=== PATIENT | female | born 1965 | race Caucasian/White ===

== ENCOUNTER → 2017-05-10 11:52 | Outpatient (CLI) | payer OTHER, SELFPAY ==
[2017-05-10 12:27] LABS: Absolute Lymphocyte Count 1.61 X10^3/ul (0.83-4.51); Absolute Neutrophil Count 2.7 X10^3/uL (2.0-7.7); Basophil# 0.02 X10^3/uL; Basophil% 0.4 % (0-1); Eosinophil# 0.08 X10^3/uL; Eosinophils% 1.7 % (0-5); Hematocrit 43.9 % (37-47); Hemoglobin 14.7 g/dl (12.0-15.0); Lymphocyte # 1.61 X10^3/ul (4.0); Lymphocyte % 33.3 % (19-41); Mean Corp Hgb Conc 33.5 g/gl (32-36); Mean Corpuscular Hgb 29.4 pg (27.0-32.0); Mean Corpuscular Volume 87.8 fL (81-99); Mean Platelet Vol. 10.4 fl (6.2-12.0); Monocyte# 0.41 X10^3/uL; Monocyte% 8.5 % (0-10); Neutrophil # 2.71 X10^3/uL (2.7-7.7); Neutrophil % 55.9 % (47-70); Platelet Count 212 K/mm3 (150-450); RBC Distribution Width CV 13.2 % (11.6-14.6); RBC Distribution Width SD 42.3 fl (35.1-43.9); White Blood Count 4.8 K/mm3 (4.4-11.0)
[2017-05-10 12:28] LABS: POSITIVE COUNT NO; POSITIVE DIFFERENTIAL NO; POSITIVE MORPHOLOGY NO
[2017-05-10 13:01] LABS: ALB/GLOB Ratio 0.8 RATIO (0.9-2.4); AST(SGOT) 23 U/L (15-37); Alanine Aminotransfer ALT/SGPT 41 U/L (13-56); Albumin, Serum 3.4 g/dL (3.2-5.0); Alkaline Phosphatase 139 U/L (45-117); Anion Gap 6 (5-15); BUN 9 mg/dL (7-18); BUN/Creat Ratio 14.2 RATIO (10-20); Calcium,Total 8.8 mg/dL (8.5-10.1); Chloride 106 mmol/L (98-107); Cholesterol 166 mg/dL (200); Creatinine, Serum 0.64 mg/dL (0.55-1.02); EST Glomerular Filtration Rate 104 mL/min (>60); Est Glom Filt Rate - Afr Amer 126 mL/min (>60); Free T3 3.3 pg/mL (2.18-3.98); Glucose 90 mg/dL (74-106); High Density Lipoprotein 67 mg/dL; Potassium 4.2 mmol/L (3.5-5.1); Protein, Total 7.4 g/dL (6.4-8.2); Sodium Level 143 mmol/L (136-145); T4 Free Direct 1.52 ng/dL (0.76-1.46); Thyroid Stim Hormone (TSH) < 0.01 uIU/mL (0.358-3.74); Triglycerides 128 mg/dL; Very Low Density Lipoprotein 26 mg/dL (5-40)
[2017-05-11 16:09] LABS: Thyroid Peroxidase AB 19 IU/mL (0-34)
[2017-05-12 09:25] LABS: Thyroglobulin Antibody < 1.0 IU/mL (0.0-0.9)
== END ==
PROVIDERS: Family Provider Family Medicine; PCP Family Medicine; Visit Provider Family Medicine
DX: E03.9 Hypothyroidism, unspecified (principal); I10 Essential (primary) hypertension; R07.89 Other chest pain
CPT/HCPCS: 36415; 80053; 80061; 84439; 84443; 84481; 85025; 86376; 86800

== ENCOUNTER → 2018-12-25 14:15 | Outpatient (CLI) | payer OTHER, SELFPAY ==
[2018-12-25 12:25] VITALS: BMI 40.7
== END ==
PROVIDERS: Family Provider Family Medicine; PCP Family Medicine; Referring Provider Physician Assistant Surgical; Visit Provider Physician Assistant Surgical
DX: J02.9 Acute pharyngitis, unspecified (principal)
CPT/HCPCS: 87070

== ENCOUNTER → 2019-02-06 12:31 | Outpatient (CLI) | payer OTHER, SELFPAY ==
[2018-12-25 12:25] VITALS: BMI 40.7
[2019-02-06 13:40] LABS: Absolute Lymphocyte Count 1.87 X10^3/uL (0.83-4.51); Absolute Neutrophil Count 2.9 X10^3/uL (2.0-7.7); Basophil# 0.04 X10^3/uL; Basophil% 0.7 % (0-1); Eosinophil# 0.07 X10^3/uL; Eosinophils% 1.3 % (0-5); Hematocrit 42.9 % (37-47); Lymphocyte # 1.87 X10^3/ul (4.0); Lymphocyte % 34.1 % (19-41); Mean Corp Hgb Conc 32.6 g/dL (32-36); Mean Corpuscular Hgb 29.5 pg (27.0-32.0); Mean Corpuscular Volume 90.3 fL (81-99); Mean Platelet Vol. 10.7 fl (6.2-12.0); Monocyte# 0.59 X10^3/uL; Monocyte% 10.7 % (0-10); NRBC Flagged by Analyzer 0 % (0-5); Neutrophil % 52.8 % (47-70); Platelet Count 183 K/mm3 (150-450); RBC Distribution Width CV 11.9 % (11.6-14.6); RBC Distribution Width SD 39.8 fl (35.1-43.9); Red Blood Count 4.75 M/mm3 (4.2-5.4); White Blood Count 5.5 K/mm3 (4.4-11.0)
[2019-02-06 14:06] LABS: Anion Gap 6 (5-15); BUN 11 mg/dL (7-18); BUN/Creat Ratio 12.9 RATIO (10-20); Calcium,Total 9.3 mg/dL (8.5-10.1); Chloride 106 mmol/L (98-107); Cholesterol 174 mg/dL (200); Creatinine, Serum 0.85 mg/dL (0.55-1.02); EST Glomerular Filtration Rate 74 mL/min (>60); Est Glom Filt Rate - Afr Amer 89 mL/min (>60); Glucose 87 mg/dL (74-106); High Density Lipoprotein 69 mg/dL; Potassium 4.2 mmol/L (3.5-5.1); Sodium Level 140 mmol/L (136-145); Thyroid Stim Hormone (TSH) 0.02 uIU/mL (0.358-3.74); Triglycerides 104 mg/dL; Very Low Density Lipoprotein 21 mg/dL (5-40)
[2019-02-06 14:48] LABS: Vitamin D,25 Hydroxy 45.6 ng/mL (29.95-100.01)
== END ==
PROVIDERS: Family Provider Family Medicine; PCP Family Medicine
DX: F41.1 Generalized anxiety disorder (principal); F33.2 Major depressive disorder, recurrent severe without psychotic features
CPT/HCPCS: 36415; 80048; 80061; 82306; 84443; 85025

== ENCOUNTER → 2019-04-02 12:34 | Outpatient (CLI) | payer OTHER, SELFPAY ==
[2018-12-25 12:25] VITALS: BMI 40.7
[2019-04-02 14:02] LABS: Erythrocyte Sedimentation Rate 18 mm/hr (0-30)
[2019-04-02 14:19] LABS: Rheumatoid Factor < 10.0 IU/mL (<15)
== END ==
PROVIDERS: PCP Family Medicine; Referring Provider Surgery; Visit Provider Surgery
DX: M79.89 Other specified soft tissue disorders (principal); M25.50 Pain in unspecified joint; R53.83 Other fatigue; F98.8 Other specified behavioral and emotional disorders with onset usually occurring in childhood and adolescence; L98.9 Disorder of the skin and subcutaneous tissue, unspecified
CPT/HCPCS: 36415; 85652; 86141; 86431

== ENCOUNTER → 2020-01-28 16:10 | Outpatient (CLI) | payer OTHER, SELFPAY | PROVIDERS: PCP Family Medicine; Referring Provider Physician Assistant Surgical; Visit Provider Physician Assistant Surgical | DX: R68.89 Other general symptoms and signs (principal) | CPT/HCPCS: 87635; U0003 ==

== ENCOUNTER → 2020-06-17 12:06 | Outpatient (CLI) | payer OTHER, SELFPAY ==
[2020-04-27 10:27] VITALS: BMI 41.6
[2020-06-17 15:33] LABS: Absolute Lymphocyte Count 1.73 X10^3/uL (0.83-4.51); Basophil# 0.04 X10^3/uL; Basophil% 0.8 % (0-1); Eosinophil# 0.07 X10^3/uL; Eosinophils% 1.3 % (0-5); Hematocrit 44.6 % (37-47); Hemoglobin 14.1 g/dL (12.0-15.0); Lymphocyte # 1.73 X10^3/ul (4.0); Lymphocyte % 33.2 % (19-41); Mean Corp Hgb Conc 31.6 g/dL (32-36); Mean Corpuscular Hgb 28.8 pg (27.0-32.0); Mean Corpuscular Volume 91.2 fL (81-99); Mean Platelet Vol. 11.4 fl (6.2-12.0); Monocyte# 0.41 X10^3/uL; Monocyte% 7.9 % (0-10); NRBC Flagged by Analyzer 0 % (0-5); Neutrophil # 2.95 X10^3/uL (2.7-7.7); Neutrophil % 56.6 % (47-70); Platelet Count 199 K/mm3 (150-450); RBC Distribution Width CV 12.5 % (11.6-14.6); RBC Distribution Width SD 41.1 fl (35.1-43.9); Red Blood Count 4.89 M/mm3 (4.2-5.4); White Blood Count 5.2 K/mm3 (4.4-11.0)
[2020-06-17 16:01] LABS: Thyroid Stim Hormone (TSH) 0.04 uIU/mL (0.358-3.74)
--- NOTE | 2020-06-17 18:24 | US_ITS ---
STUDY: ULTRASOUND OF THE FEMALE PELVIS - COMPLETE REASON FOR EXAM: Female, 54 years old. RLQ PAIN LMP: Menopause TECHNIQUE: Transabdominal and Transvaginal TECHNICAL QUALITY: Adequate. COMPARISON: 11/21/2014 FINDINGS: The uterus is anteverted and is in a midline position. The uterus measures 7.3 x 5.6 x 3.2 cm. Normal uterine cervix. The endometrium measures 8 mm in thickness, and is hyperechoic. There is no demonstrated endometrial mass. There is no demonstrated myometrial mass. I.U.D. - The patient does not have an I.U.D. The right ovary is visualized. The right ovary measures 2.2 x 1.5 x 1.3 cm. There is no right ovarian cyst or ovarian mass. There is no visualized right adnexal mass or complex lesion. There is normal arterial and normal venous vascularity. The left ovary is non-visualized.. There is no fluid in the cul-de-sac. The pre void volume of the bladder was ml. The post void volume of the bladder was ml. Polycystic ovary disease: No. US/Pelvic (Non ) IMPRESSION: Normal female pelvis. Electronically Signed: Ji Elias MD at 9:16 EDT Tel , Service support ,
== END ==
PROVIDERS: PCP Family Medicine; Referring Provider Family Medicine; Visit Provider Family Medicine
DX: R10.31 Right lower quadrant pain (principal); E03.9 Hypothyroidism, unspecified
CPT/HCPCS: 36415; 76856; 84443; 85025

== ENCOUNTER → 2020-08-25 14:04 | Outpatient (CLI) | payer OTHER, SELFPAY ==
[2020-04-27 10:27] VITALS: BMI 41.6
[2020-08-25 18:41] LABS: Thyroid Stim Hormone (TSH) 0.68 uIU/mL (0.358-3.74)
== END ==
PROVIDERS: PCP Family Medicine; Referring Provider Family Medicine; Visit Provider Family Medicine
DX: E03.9 Hypothyroidism, unspecified (principal)
CPT/HCPCS: 36415; 84443

== ENCOUNTER → 2020-11-27 07:58 | Outpatient (CLI) | payer OTHER, SELFPAY ==
--- NOTE | 2020-11-27 08:00 | BRBX_PTH ---
PATIENT: AISSATOU DOUGHERTY LOC: [facility] U#:[id number] AGE/SX: 59/F ROOM: RE11/27/[address]: Dr. Shellie Roman MD : 1965 BED: DIS: SPEC #: [id number] RECD: 11/27/20 10:13 STATUS: KAREN REAugusto #: [id number] BEENA: 11/27/20 08:[address]: Shellie Roman DEPT: SURGICAL PATHOLOGY RECD BY: Venkata Henriquez ENTERED: 11/27/20 10:27 SP TYPE: BREAST BX OTHR DR: Dr. Johanna Valdes MD Tissues: A - Left breast, NOS B - Right breast, NOS C - Right breast, NOS Procedures: Surgery Specimen Level IV HEADER OPERATION: Bilateral stereotactic breast biopsy PRE-OP DIAGNOSIS: Left breast density; right breast density and calcifications TISSUE SUBMITTED: A ? Left breast density lower inner middle depth, B ? Right breast architectural distortion anterior depth medial, C ? Right breast grouped calcifications upper outer posterior depth ISCHEMIC TIME: 1 minute FIXATION TIME: 7.5 hours MICROSCOPIC DIAGNOSIS A. Left breast density, lower inner middle depth, stereotactic core biopsy: Focal intraductal hyperplasia without atypia. Fragments of benign breast tissue with extensive dense fibrosis, suggestive of benign pseudoangiomatous stromal hyperplasia. Negative for malignancy. B. Right breast, architectural distortion anterior depth medial, stereotactic core biopsy: Fragments of benign breast tissue with extensive dense fibrosis. Focal microcalcification. Negative for atypia or malignancy. C. Right breast grouped calcifications upper outer posterior depth, stereotactic core biopsy: Hyalinized fibroadenoma with focal calcification. Fragments of benign breast tissue with focal microcalcifications. Negative for atypia or malignancy. SJ:luz elena 11/28/2020 COMMENT Correlation with clinical, radiologic and appropriate follow up are necessary. MICROSCOPIC DESCRIPTION Slides are reviewed. GROSS DESCRIPTION A - Received in fixative is one container labeled with the patient's name and designated left breast #1. The specimen consists of multiple elongated fragments of mccrary-yellow fibroadipose tissue that in aggregate measure 5 x 3 x 0.3 cm. The entire specimen is submitted in two cassettes. B - Received in fixative is one container labeled with the patient's name and designated medial density right breast #2. The specimen consists of multiple elongated fragments of mccrary-yellow fibroadipose tissue that in aggregate measure 7.5 x 3 x 0.3 cm. The entire specimen is submitted in three cassettes. C - Received in fixative is one container labeled with the patient's name and designated right breast calcification #3. The specimen consists of multiple elongated fragments of mccrary-yellow fibroadipose tissue that in aggregate measure 2 x 0.8 x 0.3 cm. The entire specimen is submitted in one cassette. / SJ:luz elena 11/27/20 TC:1 CPT: 40359 x3
--- NOTE | 2020-11-27 10:54 | OP.PCM_ITS ---
Report of Operation Date of Procedure: 11/27/20 Pre-Operative Diagnosis: abnormal lesions seen on right and left breast mammogr ams Post-Operative Diagnosis: same Surgery/Procedure Performed:: right (x2) and left stereotactic breast biopsies Description of Surgical Findings:: There are two abnormal lesions called by the radiologist on right breast mammograms and one abnormal lesion on left breast mammograms Surgeon: Shellie Roman Type of Anesthesia: Local (1% xylocaine) Specimen's removed: left breast tissue, right breast tissue x 2 Estimated Blood Loss (mL): < 5 ml Description of Procedure: After informed consent was given, the patient was brought into the Breast Biopsy suite. Appropriate time out protocol was followed. The patient was placed in the prone position on the stereotactic biopsy table. The left breast lesion was approached first. The patient?s left breast was then placed in the opening at the head of the biopsy table. A pattern marking supervisor compression mammogram was then obtained in the medial lateral view. The suspicious radiological lesion was thus identified. Stereo pictures of the lesion were then taken for XYZ coordinates. The Mammotome biopsy stylus was then positioned where it would be entering into the patient?s breast. The skin at this site was then cleansed with a surgical skin preparation. The skin and subcutaneous tissues at this site were then infiltrated with 1% xylocaine. A small skin incision was made with an 11 blade scalpel. The biopsy stylus was then positioned into the patient?s breast at the proper coordinates of depth. Using the Mammotome vacuum-assist device, several core samples of breast tissue were obtained. A hemostatic marker clip was then placed into the biopsy cavity and a pattern marking supervisor film revealed that it was properly deployed. The patient was then placed in the supine position and pressure was applied to the breast until no active bleeding was noted. Steristrips were applied to reapproximate the skin. The right breast mammographic lesions were then approached next. The first lesion approached was the asymmetric lesion seen only in CC view of the patient's original mammograms. The patient?s right breast was then placed in the opening at the head of the biopsy table. A pattern marking supervisor compression mammogram was then obtained in the CC view. The suspicious radiological lesion was thus identified. Stereo pictures of the lesion were then taken for XYZ coordinates. The Mammotome biopsy stylus was then positioned where it would be entering into the patient?s breast. The skin at this site was then cleansed with a surgical skin preparation. The skin and subcutaneous tissues at this site were then infiltrated with 1% xylocaine. A small skin incision was made with an 11 blade scalpel. The biopsy stylus was then positioned into the patient?s breast at the proper coordinates of depth. Using the Mammotome vacuum-assist device, several core samples of breast tissue were obtained. A hemostatic marker clip was then placed into the biopsy cavity and a pattern marking supervisor film revealed that it was properly deployed. Pressure was applied to the area. The second abnormal right breast mammographic lesion was then approached, which were the abnormal calcifications. A pattern marking supervisor compression mammogram was then obtained in the lateral view. The suspicious radiological lesion was thus identified. Stereo pictures of the lesion were then taken for XYZ coordinates. The Mammotome biopsy stylus was then positioned where it would be entering into the patient?s breast. The skin at this site was then cleansed with a surgical skin preparation. The skin and subcutaneous tissues at this site were then infiltrated with 1% xylocaine. A small skin incision was made with an 11 blade scalpel. The biopsy stylus was then positioned into the patient?s breast at the proper coordinates of depth. Patient tolerated pre- and Post-fire films. However, upon using the Mammotome vacuum-assist device to obtain breast tissue samples, the patient experienced pain and this caused patient to move from her position. The mammotome was removed from the patient's breast and pressure applied to the area. Only one core specimen was obtained. A specimen mammogram was therefore obtained. Since it revealed calcifications in the specimen, I re viewed this personally and concluded that the tissue sampling was adequate. The patient was then placed in the supine position and pressure was applied to the breast until no active bleeding was noted. Steristrips were applied to reapproximate the skin at all right breast biopsy sites. Mammograms were obtained for postprocedure view of the clips, s/p biopsies. The patient was discharged from the Breast Biopsy suite in good condition. Complications none noted
== END ==
PROVIDERS: PCP Family Medicine; Referring Provider Surgery; Visit Provider Surgery
DX: R92.1 Mammographic calcification found on diagnostic imaging of breast (principal); R92.2 Inconclusive mammogram
CPT/HCPCS: 19081; 19082; 88305; J7050; A4648

== ENCOUNTER → 2020-12-08 12:46 | Outpatient (CLI) | payer OTHER, SELFPAY ==
--- NOTE | 2020-12-08 13:07 | CT_ITS ---
CT Lower Extremity W/O Contrast Injection INDICATION:55 years old Female presenting with UNILATERAL PRIMARY OSTEOARTHRITIS,R KNEE. TECHNIQUE: Sequential axial 2.5 mm collimated images are obtained through the right hip and ankle. 0.625 mm images were obtained through the right knee. No intravenous contrast was administered. Images were reformatted in sagittal and coronal planes and forwarded for preoperative planning. COMPARISON: 08/03/2014. FINDINGS: Contiguous axial images of the right lower extremity was obtained in different collimations, images demonstrate degenerative changes, no evidence of cortical irregularities or lucencies to suggest fractures, no evidence of lytic or sclerotic bone lesions are seen. No evidence of right hip dislocation, mild narrowing of the right hip joint space is seen. Small right inguinal hernia visualized Moderate to severe narrowing of the medial knee joint space and the patellofemoral joint space, moderate narrowing of the lateral knee joint space. Prominent osteophyte formation is seen. Small suprapatellar fluid is seen.. The ankle mortise is well-maintained, the talar dome is unremarkable, degenerative changes visualized with no evidence of cortical irregularity or lucency to suggest a fracture. No evidence of dislocation is seen. The intramuscular fat planes and muscles are unremarkable. No evidence of subcutaneous soft tissue stranding is visualized except mild stranding along the posterior inferior aspect of the calcaneus bone. IMPRESSION: Extensive degenerative changes visualized in the right knee, no acute osseous abnormality is seen. Electronically Signed: Kermit Lentz MD at 10:35 EDT Tel , Service support , CT/Extremity Lower without Contra
== END ==
PROVIDERS: PCP Family Medicine; Referring Provider Orthopaedic Surgery; Visit Provider Orthopaedic Surgery
DX: M17.11 Unilateral primary osteoarthritis, right knee (principal)
CPT/HCPCS: 73700

== ENCOUNTER 2021-01-05 09:28 | Day surgery (SDC) | payer OTHER, SELFPAY ==
--- NOTE | 2020-11-28 14:17 | HP.PCM_ITS ---
History and Physical History and Physical [facility] Patient Name: Nikita Almodovar : 1965 From: RENETTA STEWART PA-C DATE OF SURGERY: 12/22/2020 SCHEDULED PROCEDURE: Right total knee arthroplasty HISTORY OF PRESENT ILLNESS: Preoperative history and physical exam was performed on November 26, 2020. This is a 55-year-old female who has had ongoing pain since September 2020 after going upstairs and fell. Since then she had increased right knee pain. Her pain has been constant, aching, sharp, stabbing, sore. Patient has difficulty with activities of daily living including housework, shopping, walking, and putting weight on the right lower extremity for extended periods of time. She has fallen, tripped/stumble due to the knee pain. She feels unsafe going up and down steps. Patient has had multiple falls since the injury. 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 Patient has tried rest, ice with no relief in symptoms. She has tried compression, physical therapy, and home exercises without relief in symptoms. Patient has been on Nabumetone, ibuprofen, Tylenol with no relief in symptoms. She denies previous surgery on the right knee. She has tried bracing without relief in symptoms. She has been using crutches. After failing conservative measures and discussing treatment options, the patient does wish to proceed with a right total knee arthroplasty. Patient does have medical history pertinent for depression, thyroid disease, hypertension, anxiety. She also reports that she had a recent core biopsy from her breast and is currently being evaluated. She denies any fevers, chills, recent infections. She does have aspirin allergy and which her allergy is anaphylaxis. Due to this allergy we will use Xarelto post-operatively for DVT prophylaxis. She has tolerated other nonsteroidal anti-inflammatories. REVIEW OF SYSTEMS: ROS: Const: Denies change in appetite, fever, hard of hearing, vision problems and weight change CV: Denies chest pain, heart murmur, irregular heartbeat and peripheral vascular disease. Resp: Reports asthma, but denies cough, pneumonia, sleep apnea, SOB, tuberculosis and wheezing. GI: Reports heartburn, but denies constipation, diarrhea, difficulty swallowing, nausea, bloody stools and vomiting. : Genital: reports irregular menstrual periods. Urinary: denies incontinence. Musculo: Reports leg swelling, but denies limp, trouble walking and weakness. Skin: Reports tattoo, but denies Raynaud's and history of shingles. Neuro: Denies ambulatory dysfunction, dizziness, numbness/tingling and tremor. Psych: Reports depression, but denies anxiety, insomnia, mental illness and stress. Augustine/Lymph: Reports anemia and bleeding/bruising tendency, but denies past transfusion. Reviewed, no changes. PAST MEDICAL HISTORY: Advance Care Plan: No Advance Directives Effective Date: 12/27/2018 PMH: Medical Problems: Arthritis, Thyroid Disease, Depression, High Blood Pressure, Anxiety, Plantar Fascitis Accidents: Fracture - (2014) LT KNEE Other - (09/05/2020) FELL-LT KNEE Surgical Hx: Gallbladder - (2001) Hernia Repair - (2001) Tubal Ligation - (1995) thyroid ablation - (2006) d&c - (2015) Anesthesia Complications: None Assistive Devices: Glasses, Contacts Reviewed and updated. 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 Personal Habits: Cigarette Use: Never Smoked Cigarettes.Alcohol: Weekly use.Drug Use: Denies Use.Enjoy Exercising: Exercises 1-3 x/month. Reviewed, no changes. VITALS: Ht: 67 Wt: 268lb Wt k.565 BMI: 42.0 BP: 153/88 Pulse: 66 Resp: 14 T: 96.6 T: 35.9C Pain Level: 2 ALLERGIES: Contrast Dye - anaphylaxis Seasonal - sneezing Aspirin - anaphylaxis CT Contrast Aleve MEDICATIONS: Nabumetone 500 mg 1 by mouth twice a day with food, Levothyroxine Sodium 200 mg 1 daily, M.V.I. Adult 1 daily, Atenolol 25 mg 1/2 by mouth every day, Prozac 20 mg 1 by mouth every day, Tylenol Extra Strength 500 mg 2 by mouth every 8 hours PRE-OP EXAM: General appearance:NORMAL Other: Eyes: Conjunctivae and lids: NORMAL Pupils: ERR Ears, Nose, Mouth, and Throat: NORMAL Other: Inspection of lips, teeth and gums: NORMAL Other: Neck: Examination of neck: no masses noted. Respiratory: Assessment of respiratory effort: NORMAL Other: Auscultation of lungs: clear to auscultation no wheezes, rhonchi or rales. Cardiovascular: Auscultation of heart: regular rate and rhythm, no murmurs, gallops or rubs. Exam of carotid arteries: NORMAL Other: PHYSICAL EXAMINATION: On exam of the right knee is cool to touch without erythema or signs of infection. She does have a fusion. There is tenderness to palpation along the medial joint line. She has varus deformity which is correctable on exam. Range of motion: Lacks 40 full extension to 90 flexion with increased pain. Positive Zo's examination, negative varus/valgus stress test, negative anterior drawer exam. Sensation intact to light touch. She does walk with an antalgic gait. 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 Previous x-rays show medial joint space narrowing, subchondral sclerosis, osteophyte formation with varus deformity consistent with moderate osteoarthritis. IMPRESSION: 1. Right knee osteoarthritis 2. Thyroid disease 3. Hypertension 4. Depression 5. Anxiety 6. Plantar fasciitis 7. Recent core biopsy bilateral breast PLAN: Dr. Pollo Ervin did discuss and review with the patient all treatment options including surgical versus nonsurgical options. Patient does wish to proceed with the above-stated procedure. Potential risks, benefits, and complications of the procedure were discussed in detail including but not limited to , infection, nerve and blood vessel damage, persistent pain, numbness, tingling, paresthesias, blood clot, pulmonary embolism, and requirement for possible further surgery. The patient expressed full understanding and has no further questions for the doctor. Patient does agree to proceed with the above-stated procedure and has signed the surgery consent form. We discussed the current risks associated with COVID 19. This does include the risk of exposure while in the hospital. Patient was reassured local hospitals have low infection rates and are taking all necessary precautions to avoid exposure to patients. In addition, we discussed strategies that can be used to help limit exposure including those that limit the patient's time in the hospital. Also using strategies to limit the patient's need for continued inpatient services after being discharged from the hospital. Patient was notified that we will need to comply with any screening or testing the hospital wishes to perform or that surgery may be delayed for any positive results. This dictation was created using voice recognition software. Phonetic and/or grammatical errors may exist. ___ I have re-examined the patient. There are no clinical changes since date of exam. ___ See progress notes for changes. ___ Dictated on admission Date: Time: Signature:
--- NOTE | 2020-12-08 12:59 | EKG12_ITS ---
Test Reason : PRE OP Blood Pressure : / mmHG Vent. Rate : 052 BPM Atrial Rate : 052 BPM P-R Int : 150 ms QRS Dur : 084 ms QT Int : 424 ms P-R-T Axes : 056 042 033 degrees QTc Int : 394 ms Sinus bradycardia with sinus arrhythmia Nonspecific T wave abnormality Abnormal ECG Confirmed by EDVIN MEDINA, NOE ([id number]), marketing editor LISA LAMBERT ([id number]) on 12/15/2020 12:35:36 PM Referred By: Pollo Ervin Confirmed By:KELSEA PARDO MD
[2020-12-08 14:01] LABS: Absolute Lymphocyte Count 1.96 X10^3/uL (0.83-4.51); Absolute Neutrophil Count 4.5 X10^3/uL (2.0-7.7); Basophil# 0.06 X10^3/uL; Basophil% 0.8 % (0-1); Eosinophil# 0.11 X10^3/uL; Eosinophils% 1.5 % (0-5); Hematocrit 45.9 % (37-47); Hemoglobin 14.5 g/dL (12.0-15.0); Lymphocyte # 1.96 X10^3/ul (0.83-4.51); Lymphocyte % 27.2 % (19-41); Mean Corp Hgb Conc 31.6 g/dL (32-36); Mean Corpuscular Hgb 29.5 pg (27.0-32.0); Mean Corpuscular Volume 93.5 fL (81-99); Mean Platelet Vol. 11.5 fl (6.2-12.0); Monocyte# 0.61 X10^3/uL; Monocyte% 8.5 % (0-10); NRBC Flagged by Analyzer 0 % (0-5); Neutrophil # 4.45 X10^3/uL (2.7-7.7); Neutrophil % 61.7 % (47-70); Platelet Count 235 K/mm3 (150-450); RBC Distribution Width CV 12.9 % (11.6-14.6); RBC Distribution Width SD 44.3 fl (35.1-43.9); Red Blood Count 4.91 M/mm3 (4.2-5.4); White Blood Count 7.2 K/mm3 (4.4-11.0)
[2020-12-08 14:21] LABS: Anion Gap 5 (5-15); BUN 10 mg/dL (7-18); BUN/Creat Ratio 12.3 RATIO (10-20); Calcium,Total 9.2 mg/dL (8.5-10.1); Chloride 107 mmol/L (98-107); Creatinine, Serum 0.82 mg/dL (0.55-1.02); EST Glomerular Filtration Rate 77 mL/min (>60); Est Glom Filt Rate - Afr Amer 93 mL/min (>60); Glucose 97 mg/dL (74-106); Potassium 3.8 mmol/L (3.5-5.1); Sodium Level 142 mmol/L (136-145)
[2020-12-08 14:31] LABS: Thyroid Stim Hormone (TSH) 0.19 uIU/mL (0.358-3.74)
[2021-01-05] VITALS (7 sets, daily range): BP systolic 110–147; BP diastolic 62–84; PULSE 43–62; RESP 16–18; TEMP 36.3–36.7; O2SAT 96–100; BMI 41.8
[2021-01-05 09:55] LABS: Bedside Glucose 100 mg/dL (70-110)
[2021-01-05] MEDS: Acetaminophen 500 MG Tablet 1000 MG PO (10:07)
[2021-01-05] MEDS: Gabapentin 600 MG Tablet PO (10:08)
[2021-01-05] MEDS: Lactated Ringers 1,000 ML 100 ML IV (10:15)
[2021-01-05] MEDS: dexAMETHasone 10 MG/ML Vial IV (11:18)
--- NOTE | 2021-01-05 11:30 | KNEE_PTH ---
PATIENT: AISSATOU DOUGHERTY LOC: [facility] [place] U#:[id number] AGE/SX: 55/F ROOM: RE01/05/[address]: Dr. Pollo Ervin DO : 1965 BED: DIS: 01/05/2021 SPEC #: [id number] RECD: 01/05/21 15:07 STATUS: KAREN REAugusto #: [id number] BEENA: 01/05/21 11:[address]: Pollo Ervin DEPT: SURGICAL PATHOLOGY RECD BY: Daniela Keenan ENTERED: 01/06/21 08:14 SP TYPE: TOTAL KNEE OTHR DR: Dr. Johanna Valdes MD Tissues: Knee, NOS Procedures: Decalcification bone/plaque Surgery Specimen Level IV HEADER OPERATION: ERAS, total knee replacement robotic arm assist PRE-OP DIAGNOSIS: Right knee osteoarthritis TISSUE SUBMITTED: Right knee bone MICROSCOPIC DIAGNOSIS Right knee bone, total knee replacement/resection: Pieces of bone with degenerative osteoarthritic changes. MAURICIO:luz elena 01/09/2021 MICROSCOPIC DESCRIPTION Slides are reviewed. GROSS DESCRIPTION Received is one container designated right knee bone. The specimen consists of multiple fragments of mccrary-yellow bone measuring in aggregate 10 x 8 x 3 cm. No soft tissue is identified. A number of bony fragments contain articular surfaces consistent with tibial plateau and femoral condyle and displaying prominent osteophyte formation, eburnation, and bone erosion. Dentofacial Orthopedics Dentist sections are submitted in two cassettes after decalcification. / MAURICIO:luz elena 01/06/21 TC:3 CPT: 69490, 56587
[2021-01-05] MEDS: Joint Pain Solution (NO KETOROLAC) 100 ML IV (12:10)
--- NOTE | 2021-01-05 12:39 | OP.PCM_ITS ---
Report of Operation Date of Procedure: 01/05/21 Pre-Operative Diagnosis: OA right knee Post-Operative Diagnosis: same Surgery/Procedure Performed:: Right TKR Description of Surgical Findings:: Report of Operation Date of Procedure: 01/05 21 Preoperative Diagnosis: [ right ] knee primary osteoarthritis Postoperative Diagnosis: [ right ] knee primary osteoarthritis Operation: Robotic Assisted Knee Total Arthroplasty, [ right ] knee Surgeon: Dr Pollo Ervin DO Apparel Fashion Designer: Danny Emmanuel PA-C Anesthesia: spinal Anesthesiologist: Leo Pearce M.D. Findings: Stable knee with good patella tracking Specimen(s): Bony cuts Complications: No intraoperative complications Estimated Blood Loss: 20 cc IV Fluids:1000 cc crystalloid Implants Used: 1. [place] Triathlon size 4 CR press-fit femur 2. [place] Triathlon size 3 tibia 3. 32 mm patella 4. 9 mm CS polyethylene Brief History Operative Indications: [ 55 y/o female) ] with history of [ right ] knee osteoarthrosis with radiographic findings with loss of joint space, osteophyte formation and subchondral sclerosis. Failed conservative measures as mentioned in the H&P. Discussion of total knee arthroplasty as well as risk and benefits were discussed with the patient including but not limited to blood loss, DVTs, PEs, neurovascular damage, general risk of anesthesia including loss of life, and stiffness or instability were also discussed with the patient. Patient de monstrated understanding and was able to sign informed consent. Procedure: On the date of procedure, patient's [right ] lower extremity was marked in the preoperative area. The patient was then taken back to the operating room where that patient was placed on the table in the supine position. All bony prominences were identified and well-padded. Anesthesia assumed control of the C-spine and airway throughout the remainder of the procedure. A tourniquet was placed on the [right ] upper thigh and the leg was prepped in a sterile fashion. The surgeon then scrubbed at this time. Upon reentering the room, the [right ] lower extremity was draped in a standard orthopedic fashion. A timeout was then called and everyone agreed upon the side, the site, the procedure to be performed, patient's identity and antibiotics given. Esmarch bandage was used to exsanguinate the extremity and the tourniquet was placed up to 250 mmHg with the knee in flexion. A midline skin incision was made and a sharp dissection was taken down through skin, subcutaneous tissue and fat. The standard medial parapatellar incision was made and the patella was subluxed laterally. An appropriate deep MCL release was done and the fat pad was resected. Our attention was then directed to the patella. The patella was everted and a flat resection was made. The knee was then flexed up and 2 femoral pins were placed inside the incision and 2 tibial pins were placed outside the incision in the medial tibia bicortically. Once this was completed, the 2 checkpoints in the femur and tibia were placed. Knee was then flexed up and the bony landmarks were registered. Once the was completed, the knee taken through range of motion and manually stressed allowing us to plan for an appropriate tibial cut. The robotic arm was brought into the field sterilely and checkpoint and saw were registered. Based on the patient's deformity, the tibial cut was made in [2 degrees varus ]. At this time, the tensioner was then placed in the joint and ligament tension was checked at 90 degrees and full extension. Based on the patient's ligamentous tension, appropriate adjustments were made to the operative plan and ligament releases were done. Once we were happy with our operative plan with balanced flexion and extension gaps, our attention was directed to the femur. The robot was brought into the field sterilely and registered. Posterior condylar cuts, anterior chamfer cuts and anterior cuts were appropriately made for a [ size 4 ] femur. When these were completed, the saws were switched out in the distal femoral and posterior chamfer cuts were made. Protecting the soft tissue throughout this time. A [ size 3 ] base plate was selected. The knee was flexed to 90 degrees and soft tissues and posterior osteophytes were removed from the joint. 40 cc of the periarticular injection was injected into the posterior medial corner of the joint. The appropriate trials were then placed on the femur and tibia. A trial polyethylene was trialed to ensure proper balancing and stability of the knee. The appropriate tibial internal rotation was then marked with a bovie. Our attention was then directed to the patella. The lug holes were drilled and the patella trial was placed. Patellar tracking was checked and deemed appropriate. Once we were happy, lug holes were drilled for the femur and trial components were removed. The tibia was subluxed and pinned into place and the keel was punched and drilled appropriately. Final components were verified and opened. The wound was copiously irrigated with normal saline. The components were impacted into place with the tibia, femur and finally the patella. The trial poly component was placed and the knee was placed in full extension. The tracking, alignment and balance were verified and a [9 mm CS ] polyethylene component was placed. Once the final components were placed an Irrisept lavage was performed and the wound was copiously irrigated with normal saline solution and the periarticular injection was given. the wound was closed in a layer-smith fashion using #1 vicryl interrupted sutures for the arthrotomy, 2-0 interrupted vicryl suture for the subcuticular layer and timothy for final skin closure. A sterile compressive dressing was then placed. The patient was then awakened from anesthesia, transf erred to the [facility] and transferred to the PACU for recovery. My physician elder assistant was a vital part of this case. He was important in appropriate retraction during the case, and protection of soft tissues during bony cuts. His intimate knowledge of the case and my steps aided in safe and expedient completion of the procedure as well as appropriate position of the leg during the case. He was also vital in assisting with closure under my direct supervision. Due to the complexity of this case, robotic arm was used to assist in the surgery to improve accuracy and clinical outcomes. Post-op Plan: DVT ppx; ASA 81 mg BID, thigh high compression stockings Follow up: in office in 2 weeks for wound check PT: to start POD #0 at hospital, outpatient PT should be arranged. Preoperative antibiotic: Ancef 3 grams IV Pollo Ervin DO Surgeon: Pollo Ervin inspector electromechanical: Danny Emmanuel Type of Anesthesia: Spinal Anesthesiologist: Leo Pearce Estimated Blood Loss (mL): 20 cc Fluids Replaced: 1000 cc crystalloid Admit VTE Documentation VTE Present on Admission: No VTE Mechan Device Prophylaxis: SCD's and Thigh High ALEJANDRA Hose VTE Pharm Prophylaxis ordered?: Yes
[2021-01-05] MEDS: Lactated Ringers 1,000 ML 125 ML IV (12:55)
--- NOTE | 2021-01-05 13:07 | RAD_ITS ---
STUDY: X-RAY - RIGHT KNEE REASON FOR EXAM: Female, 55 years old. Total knee replacement -- in PACU TECHNIQUE: 2 view(s) of the knee. COMPARISON: None. FINDINGS: Normal visualized distal femur. Normal visualized proximal tibia and fibula. Normal proximal tibiofibular articulation. The patient is status post total knee replacement. There is good alignment. Postoperative soft tissue changes. RAD/Knee 1 or 2 Views IMPRESSION: Status post total knee replacement. There is good alignment. Postoperative soft tissue changes. Electronically Signed: Maxwell Washburn MD at 15:40 EDT , Service support ,
== END 2021-01-05 16:23 | disposition home or self-care (01) ==
LOC: SDC 09:31 → AC 09:33
PROVIDERS: Anesthesiology; PCP Family Medicine; Referring Provider Orthopaedic Surgery; Visit Provider Orthopaedic Surgery
PROC: 0SRC0JZ Replacement of Right Knee Joint with Synthetic Substitute, Open Approach (ICD-10-PCS; CPT 27447; principal; 2021-01-05 11:00)
DX: M17.11 Unilateral primary osteoarthritis, right knee (principal); I10 Essential (primary) hypertension; F32.9 Major depressive disorder, single episode, unspecified; E07.9 Disorder of thyroid, unspecified
CPT/HCPCS: 01402; 27447; 64447; S2900; 36415; 73560; 80048; 82962; 83735; 84443; 85025; 87081; 87426; 88305; 88311; 93005; 97162; C1776; C9803; J7120

== ENCOUNTER → 2021-01-12 14:03 | Outpatient (CLI) | payer OTHER, SELFPAY ==
--- NOTE | 2021-01-12 14:06 | VDLE_ITS ---
Reason For Study: Pain RIGHT GSV is normal. CFV is compressible, spontaneous, phasic, competent and demonstrates normal augmentation. FV is compressible, spontaneous, phasic, competent and demonstrates normal augmentation. POP V is compressible, spontaneous, phasic, competent and demonstrates normal augmentation. T/P Trunk is compressible. PTV is compressible. RT PerV is compressible. Procedure This is a venous duplex using B-mode, color flow and spectral Doppler. Exam performed in department. A preliminary report was called and/or faxed to Dr. Ervin. VL/Venous Duplex US, Unilateral Interpretation Summary Deep veins of the right lower extremity are patent and compressible segmentally . There is no evidence of right lower extremity deep vein thrombosis. Valvular competence peggy ears intact within the proximal deep venous system on the right . The right great saphenous vein a ppears patent and compressible segmentally. Ordering Physician: Pollo Ervin Referring Physician: Johanna Valdes Performed By: Elena Mckenzie, JEANNETTECS, RVT
== END ==
PROVIDERS: PCP Family Medicine; Referring Provider Orthopaedic Surgery; Visit Provider Orthopaedic Surgery
DX: M79.661 Pain in right lower leg (principal)
CPT/HCPCS: 93971

== ENCOUNTER → 2022-03-30 | Outpatient (CLI) | payer OTHER, SELFPAY ==
[2022-03-30 10:11] LABS: Absolute Lymphocyte Count 1.56 X10^3/uL (0.83-4.51); Absolute Neutrophil Count 2.2 X10^3/uL (2.0-7.7); Basophil# 0.03 X10^3/uL; Basophil% 0.7 % (0-1); Eosinophils% 2.3 % (0-5); Hematocrit 43.7 % (37-47); Hemoglobin 14.1 g/dL (12.0-15.0); Lymphocyte # 1.56 X10^3/ul (0.83-4.51); Mean Corp Hgb Conc 32.3 g/dL (32-36); Mean Corpuscular Volume 89.9 fL (81-99); Mean Platelet Vol. 11.4 fl (6.2-12.0); Monocyte# 0.42 X10^3/uL; Monocyte% 9.7 % (0-10); NRBC Flagged by Analyzer 0 % (0-5); Neutrophil # 2.21 X10^3/uL (2.7-7.7); Neutrophil % 51.1 % (47-70); Platelet Count 199 K/mm3 (150-450); RBC Distribution Width CV 12.5 % (11.6-14.6); RBC Distribution Width SD 41.2 fl (35.1-43.9); Red Blood Count 4.86 M/mm3 (4.2-5.4); White Blood Count 4.3 K/mm3 (4.4-11.0)
[2022-03-30 10:30] LABS: ALB/GLOB Ratio 0.9 RATIO (0.9-2.4); AST(SGOT) 13 U/L (15-37); Alanine Aminotransfer ALT/SGPT 23 U/L (13-56); Albumin, Serum 3.2 g/dL (3.2-5.0); Alkaline Phosphatase 109 U/L (45-117); Anion Gap 3 (5-15); BUN 8 mg/dL (7-18); BUN/Creat Ratio 10.4 RATIO (10-20); Calcium,Total 9.2 mg/dL (8.5-10.1); Chloride 108 mmol/L (98-107); Cholesterol 136 mg/dL (200); Creatinine, Serum 0.77 mg/dL (0.55-1.02); EST Glomerular Filtration Rate 82 mL/min (>60); Est Glom Filt Rate - Afr Amer 99 mL/min (>60); Globulin 3.5 g/dL (2.2-4.2); Glucose 92 mg/dL (74-106); High Density Lipoprotein 64 mg/dL; Potassium 4.1 mmol/L (3.5-5.1); Protein, Total 6.7 g/dL (6.4-8.2); Sodium Level 142 mmol/L (136-145); Thyroid Stim Hormone (TSH) 0.01 uIU/mL (0.358-3.74); Triglycerides 70 mg/dL; Very Low Density Lipoprotein 14 mg/dL (5-40)
== END | disposition home or self-care (01) ==
LOC: MTLAB 08:08
PROVIDERS: PCP Family Medicine; Referring Provider Family Medicine; Visit Provider Family Medicine
DX: Z00.00 Encounter for general adult medical examination without abnormal findings (principal); I10 Essential (primary) hypertension; E03.9 Hypothyroidism, unspecified
CPT/HCPCS: 36415; 80053; 80061; 84443; 85025

== ENCOUNTER → 2022-06-14 | Outpatient (CLI) | payer OTHER, SELFPAY ==
--- NOTE | 2022-06-14 08:41 | BI_ITS ---
MAMMOGRAPHY - UNILATERAL DIAGNOSTIC: RIGHT BREAST REASON FOR EXAM: Female, 56 years old. Abnormal mammogram PERTINENT HISTORY: No family history, previous biopsies, right breast pain TECHNIQUE: Digital examination. Spot compression CC and MLO views CAD: CAD was not performed on this study. COMPARISON: Outside study from 07/21/2021 FINDINGS: Breast Composition: There are scattered areas of fibroglandular density. There is persistence of asymmetric density in the upper outer quadrant of the right breast on spot compression views along with punctate calcifications. Further evaluation with ultrasound is recommended. BI/DIAG MAMM W/CAD, UNILAT IMPRESSION: Further ultrasonographic evaluation recommended, as described above. Recall Side: Right Breast ASSESSMENT CATEGORY: BIRADS Category 0: Incomplete. Need additional imaging evaluation. A letter regarding these results will be sent to the patient by the facility within 30 days. FOLLOW-UP RECOMMENDATION: Ultrasound recommended. (I) Approximately 10% of breast cancers are not detected by mammography. A normal mammogram should not delay biopsy of a clinically suspicious abnormality. Electronically Signed: Rizwan Smith MD at 10:01 EDT ,
--- NOTE | 2022-06-14 08:41 | US_ITS ---
STUDY: ULTRASOUND BREAST - RIGHT REASON FOR EXAM: Female, 56 years old. Right breast pain TECHNIQUE: Axial and longitudinal images of the RIGHT breast were performed with a high resolution ultrasound transducer. # OF IMAGES: 35 COMPARISON: Mammogram from earlier today FINDINGS: RIGHT Breast: 4 quadrant and retroareolar ultrasound of the right breast performed. Normal fibroglandular tissue noted. No suspicious shadowing solid lesion, or architectural distortion noted. No fluid collection or hyperemia. The mammogram showed punctate calcifications which appear to change shape on the CC and MLO views suggesting that are likely milk of calcium. However, prior outside studies need to be reviewed to determine if these calcifications have changed since a previous mammogram. Based on today''s mammogram and ultrasound, a six-month follow-up is recommended to reassess. US/Breast Limited Unilateral IMPRESSION: No suspicious underlying abnormality. Calcifications on the spot compression views need to be compared with outside study. Six-month follow-up recommended to reassess ASSESSMENT CATEGORY: BIRADS Category 3: Probably Benign - Short-Interval Follow-up Suggested. A letter regarding these results will be sent to the patient by the facility within 30 days. Electronically Signed: Rizwan Smith MD at 10:05 EDT ,
== END | disposition home or self-care (01) ==
PROVIDERS: PCP Family Medicine; Referring Provider Family Medicine; Visit Provider Family Medicine
DX: R92.8 Other abnormal and inconclusive findings on diagnostic imaging of breast (principal); N64.4 Mastodynia
CPT/HCPCS: 76642; 77065

== ENCOUNTER → 2022-06-29 | Outpatient (CLI) | payer SELFPAY ==
--- NOTE | 2022-06-29 11:01 | MRI_ITS ---
STUDY: BILATERAL BREAST MR WITHOUT AND WITH CONTRAST REASON FOR EXAM: Female, 56 years old. Right breast pain. History of negative breast biopsy in November 2020. Dense breasts. TECHNIQUE: Multi-sequence multi-echo imaging of both breasts was performed with a dedicated breast coil. T1-weighted and T2-weighted images were performed before the administration of contrast. T1-weighted images were also performed after the intravenous administration of 19 mL of Clariscan contrast. COMPARISON: Right breast ultrasound dated June 14, 2022 and right diagnostic mammogram dated June 14, 2022. FINDINGS: RIGHT BREAST: Scattered fibroglandular densities which no significant background enhancement. There are no abnormal enhancing masses or areas of non-mass enhancement in the right breast. LEFT BREAST: Scattered fibroglandular densities with no significant background enhancement. No abnormal enhancing masses or areas of non-mass enhancement in the left breast. No enlarged or abnormal lymph nodes. No abnormality in the visualized regions of the chest or liver. MRI/Breast Bilateral W/O and W IMPRESSION: No abnormality on the breast MRI with contrast. Yearly screening mammogram recommended. CATEGORY: BIRADS Category 2: Benign. A letter regarding these results will be sent to the patient by the facility within 30 days. Electronically Signed: Danny Diaz, at 11:01 EDT ,
== END | disposition home or self-care (01) ==
LOC: MRI 10:59
PROVIDERS: PCP Family Medicine; Referring Provider Surgery; Visit Provider Surgery
DX: R92.2 Inconclusive mammogram (principal); N64.4 Mastodynia
CPT/HCPCS: 77049; A9575; A4216; C8908

== ENCOUNTER → 2022-07-01 | Outpatient (CLI) | payer OTHER, SELFPAY ==
--- NOTE | 2022-07-01 | BRBX_PTH ---
PATIENT: AISSATOU DOUGHERTY LOC: [facility] U#:[id number] AGE/SX: 56/F ROOM: RE07/01/[address]: Dr. Jose M Zuluaga MD : 1965 BED: DIS: 07/01/2022 SPEC #: [id number] RECD: 07/01/22 12:32 STATUS: KAREN MONGE #: [id number] BEENA: 07/01/22 00:[address]: Jose M Zuluaga DEPT: SURGICAL PATHOLOGY RECD BY: Matti Hidalgo ENTERED: 07/01/22 12:33 SP TYPE: BREAST BX OTHR DR: Dr. Johanna Valdes MD Tissues: Right breast, NOS Procedures: Surgery Specimen Level IV HEADER OPERATION: Right breast stereotactic biopsy PRE-OP DIAGNOSIS: Right breast calcifications TISSUE SUBMITTED: Right breast core tissue ISCHEMIC TIME: 1 minute FIXATION TIME: 9.5 hours MICROSCOPIC DIAGNOSIS Right breast, stereotactic core biopsy: Hyalinized fibroadenoma with clustered microcalcifications. Mild fibrocystic change with associated microcalcifications. No evidence of malignancy. AM:luz elena 07/02/2022 MICROSCOPIC DESCRIPTION Slides are reviewed. GROSS DESCRIPTION Received in fixative is one container labeled with the patient's name and designated right breast. The specimen consists of multiple elongated fragments of mccrary-yellow fibroadipose tissue that in aggregate measure 5.0 x 3.0 x 0.3 cm. The entire specimen is submitted in two cassettes. / SJ:luz elena 07/01/2022 TC:5 CPT: 19261
--- NOTE | 2022-07-01 09:48 | HP.PCM_ITS ---
History and Physical Date of Admission: 07/01/22 Visit Reasons:?R BREAST BIRADS 4- CALCIFICATIONS Chief Complaint: Abnormal mammogram right breast Truck Driver Helper Required: No Is patient in pain?: No Allergies aspirin Allergy (Verified 06/17/22 14:00) AnaphylaxisIodinated Contrast Media [CT] Allergy (Verified 06/17/22 14:00) Anaphylaxishot dogs Allergy (Uncoded 06/17/22 14:00) AnaphylaxisORAL CONTRAST Allergy (Uncoded 06/17/22 14:00) Anaphylaxis Medications fluoxetine 20 mg capsule (Prozac) 20 mg PO DAILY 04/27/20 [History Confirmed 06/17/22] multivitamin with minerals-folic acid 200 mcg chewable tablet (Multivitamin Gummies) 1 tab PO DAILY 12/08/20 [History Confirmed 06/17/22] acetaminophen 500 mg tablet 1,000 mg PO Q8H 14 days #84 tabs 01/05/21 [Rx Confirmed 06/17/22] levothyroxine 200 mcg tablet 150 mcg PO DAILY 06/17/22 [History Confirmed 06/17/22] lisinopril 5 mg tablet 5 mg PO DAILY 06/17/22 [History Confirmed 06/17/22] loratadine 10 mg tablet 10 mg PO DAILY PRN 06/17/22 [History Confirmed 06/17/22] omeprazole 20 mg capsule,delayed release 20 mg PO DAILY 06/17/22 [History Confirmed 06/17/22] PFSH Medical History?(Updated 06/17/22 @ 14:[address] Jose M Zuluaga MD) Abnormal mammogram of right breast Alcohol use Anxiety Arthritis Asthma Back pain Chest pain Depression Fatigue Fever Hay fever Heartburn History of edema History of edema History of pain when walking History of rheumatic fever History of stress test Hypertension Knee pain Loss of hearing Low iron Lung disease Non-smoker Shortness of breath on exertion Thyroid disease Umbilical hernia Wears glasses Surgical History? Hx of cholecystectomy Hx of dilation and curettage Tubal ligation status Family History?(Updated 06/17/22 @ 13:58 by Monica Mays) Uncle Cancer ?? ? Stomach cancerFather Heart diseaseOther CVA (cerebral vascular accident) Diabetes Myocardial infarction Social History?(Updated 06/17/22 @ 13:59 by Monica S Mays) Smoking Status:? Never smoker alcohol intake:? current alcohol intake frequency: a few times a month Alcohol type: beer substance use type:? does not use HPI HPI HPI: 56-year-old female is referred by Dr. Johanna Valdes for surgical consultation regarding an abnormal mammogram and a written copy of my surgical consult recommendations will return to her.? The patient had mammography performed June 14, 2022 and was compared to July 21, 2021 and there is felt to be increased number and size of calcifications in the upper outer quadrant of the right breast.? BI-RADS Category 4.? Breast ultrasonography not remarkable.? I have personally reviewed these images and concur with the interest in the microcalcifications upper outer quadrant right breast.? Per Dr. Shellie Roman on November 27, 2020 the patient had stereotactic core biopsies x3 1 on the left and 2 on the right.? The lower inner left suggested pseudoangiomatous stromal hyperplasia and focal intraductal hyperplasia without atypia.? The right breast medial biopsy showed focal microcalcifications and extensive dense fibrosis.? The upper outer right breast demonstrated hyalinized fibroadenoma with focal calcification. 57-year-old female.? G1, .? Menarche age of 13.? First child born which was 23.? She did not breast-feed.? As noted above she has had a total of 3 stereotactic needle core biopsies all benign.? She has not been on any estrogen replacement.? Family history negative for breast cancer. 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 Her primary concern is right breast pain of newer onset and undetermined etiology.? She on self exam was not able to detect a focal area but she is quite painful in the lower aspect of the right breast. ROS General General: Yes weight change; No appetite, fatigue, colon cancer, breast cancer or weakness HEENT HEENT: No difficulty swallowing, eye injury, eye surgery, swollen glands or hoarseness Endo Endocrine: Yes thyroid disease; No diabetes mellitus, thyroid cancer, Hair loss, heat intolerance or cold i ntolerance Skin Skin: No rash or changing moles Breast Breast: Yes abnormal mammogram; No left breast lump, right breast lump, nipple discharge, breast pain, abnormal US or breast enlargement Additional Details: Right Musc Musculoskeletal: Yes arthritis; No back problems, rheumatoid arthritis, gout or joint pain Cardio Cardiovascular: Yes high blood pressure; No murmur, pacemaker, heart disease, atrial fibrillation, heart attack, heart stent, palpitations, shortness of breat with exertion or chest pain Psych Psychiatric: Yes depression and anxiety; No hearing voices Resp Respiratory: No shortness of breath, No sleep apnea, No cough, No COPD, No asthma, No emphysema and No wheezing Gastro Gastrointestinal: No abdominal pain, No nausea or vomiting, No diarrhea, No constipation, No blood in stool, Yes acid reflux, No hemorrhoids, No ulcers, No gallbladder problem and No black,tarry stools [place] Hematologic: No blood thinners, No blood disorders, No bleeding, No anemia and No blood clots Neuro Neurologic: No system reviewed and no additional complaints, except as documented, No as per HPI, No abnormal gait, No abnormal hearing, No abnormal movements, No abnormal speech, No behavioral changes, No burning sensations, No confusion, No convulsions, No disequilibrium, No dizziness, No localized weakness, No frequent falls, No headache(s), No lack of coordination, No loss of vision, No memory loss, No numbness, No other visual disturbances, No radicular pain, No restless legs, No sensory deficit, No syncope, No tingling, No tremor(s), No weakness and No other Exam Chest Other: Right breast: Tender palpation 6 o'clock position right breast without focal mass.? Diffuse fibrous change.? No nipple discharge no axillary clavicular adenopathy Left breast: No focal tenderness.? No nipple discharge.? Diffuse fibrous change.? No axillary clavicular adenopathy Assessment and Plan Assessment and Plan (1) Abnormal mammogram of right breast: ?Status:?Acute ?Plan: Copy: Dr. Johanna Zuluaga M.D., F.A.C.S. (2) Breast pain, right: ?Status:?Acute (3) Dense breast tissue on mammogram: ?Status:?Acute ?Plan: Concerning features are right breast pain and dense breasts on mammography making them less detailed.? I am recommending the patient a bilateral breast MRI.? She actually is so concerned she wondered whether she should pursue bilateral prophylactic mastectomy. I have reviewed her mammogram and ultrasounds.? The microcalcifications upper outer quadrant right breast are of interest.? They are faint and may be challen ging to sample.? I recommend to a stereotactic needle core biopsy upper outer quadrant right breast microcalcifications. She has had an opportunity to ask and have questions answered.? We will pursue imaging and then tissue sampling.? I appreciate the opportunity of assisting with her surgical care. Copy: Dr. Johanna Zuluaga M.D., F.A.C.S. I have examined the patient and the H&P has been reviewed. There are no clinical changes since date of exam. Jose M Zuluaga M.D., F.A.C.S.
--- NOTE | 2022-07-01 10:24 | OP.PCM_ITS ---
Report of Operation Date of Procedure: 07/01/22 Pre-Operative Diagnosis: Clustered microcalcifications upper outer quadrant rig ht breast Post-Operative Diagnosis: Same Surgery/Procedure Performed:: Stereotactic needle core biopsy upper outer quadrant right breast Description of Surgical Findings:: Timeout and informed consent was obtained. A 56-year-old female was taken to the stereotactic room placed prone on the table with the right breast was placed in a lateral medial view the microcalcifications in question rapidly identified several images were required and then stereotactic images were obtained. Single target site selected. The breast was prepped with alcohol because of the patient's iodine reaction history. 1% lidocaine was used as a local anesthetic. A total of 11 cc was used. Small stab incision was created. An 8 gauge mammotome needle was advanced to prefire depth. Prefire films were obtained. 6 cores were obtained 3 at 12:00 and 3 its o'clock position. Specimen mammograms were obtained. Several cores had microcalcifications present. Marking clip was subsequently left at the 12 o'clock position. On fast view demonstrated the marking clip to be in good position with diminution in the number of previous microcalcifications present. She was released from the device. Pressure was held for hemostasis. Steri-Strip Telfa OpSite dressing applied. She was given activity wound care instructions. Blood loss was minimal. She tolerated the procedure well. The specimens were immediately transferred to formalin for analysis. No apparent complication. She will be notified of pathology results as soon as they become available. Jose M Zuluaga M.D., F.A.C.S. Surgeon: Jose M Zuluaga Type of Anesthesia: Local
== END | disposition home or self-care (01) ==
PROVIDERS: PCP Family Medicine; Referring Provider Surgery; Visit Provider Surgery
DX: R92.1 Mammographic calcification found on diagnostic imaging of breast (principal)
CPT/HCPCS: 19081; 88305; J7050

== ENCOUNTER → 2022-09-09 | Outpatient (CLI) | payer OTHER, SELFPAY ==
[2022-09-09 12:58] LABS: Thyroid Stim Hormone (TSH) 0.15 uIU/mL (0.358-3.74)
== END | disposition home or self-care (01) ==
LOC: BFHLAB 08:23
PROVIDERS: PCP Family Medicine; Referring Provider Family Medicine; Visit Provider Family Medicine
DX: E03.9 Hypothyroidism, unspecified (principal)
CPT/HCPCS: 36415; 84443

== ENCOUNTER 2023-01-15 17:01 | Emergency (ER) | payer OTHER, SELFPAY ==
[2023-01-15 17:02] VITALS: BP 142/86; PULSE 58; RESP 14; TEMP 36.4; O2SAT 99; BMI 33.1
[2023-01-15 17:20] VITALS: BP 150/87; PULSE 47; RESP 14; O2SAT 99
--- NOTE | 2023-01-15 17:35 | EKG12_ITS ---
Test Reason : CP Blood Pressure : / mmHG Vent. Rate : 048 BPM Atrial Rate : 048 BPM P-R Int : 152 ms QRS Dur : 086 ms QT Int : 428 ms P-R-T Axes : 052 042 044 degrees QTc Int : 382 ms Sinus bradycardia Otherwise normal ECG Confirmed by CHRIS MEDINA, FAISAL ([id number]), science editor LISA LAMBERT ([id number]) on 01/26/2023 9:59:11 AM Referred By: ALAN/TEDDY Confirmed By:FAISAL PEREZ MD
--- NOTE | 2023-01-15 17:36 | ED.VIS.CHEST ---
HPI History of Present Illness Chief Complaint: Chest Pain Informant: patient Onset/Context/Timing Onset: Yesterday Narrative Narrative: Patient presents secondary to left-sided chest pain. She states last evening she had some left chest pressure that spontaneously resolved. She was able to sleep last night. Pain recurred this morning and has been intermittently worsening throughout the day. She states it does not be worse when she is up doing things but better when she lays down to rest. She does not feel short of breath but states that she feels she needs to conscientiously take a deep breath every once in a while. Yesterday she had some tingling in her left arm. Today she states that is improved but is now developing tingling in her fingers of both hands. She denies personal history of heart disease. She has never had a stress test or a heart cath. [facility] Medical History Abnormal mammogram of right breast Alcohol use Anxiety Arthritis Asthma Back pain Chest pain Depression Fatigue Fever Hay fever Heartburn History of edema History of edema History of pain when walking History of rheumatic fever History of stress test Hypertension Knee pain Loss of hearing Low iron Lung disease Non-smoker Shortness of breath on exertion Thyroid disease Umbilical hernia Wears glasses Home Medications fluoxetine 20 mg capsule (Prozac) 20 mg PO DAILY 04/27/20 [History Last Taken Unknown] multivitamin with minerals-folic acid 200 mcg chewable tablet (Multivitamin Gummies) 1 tab PO DAILY 12/08/20 [History Last Taken Unknown] levothyroxine 200 mcg tablet 150 mcg PO DAILY 06/17/22 [History Last Taken Unknown] lisinopril 5 mg tablet 5 mg PO DAILY 06/17/22 [History Last Taken Unknown] loratadine 10 mg tablet 10 mg PO DAILY PRN ALLERG 06/17/22 [History Last Taken Unknown] omeprazole 20 mg capsule,delayed release 20 mg PO DAILY 06/17/22 [History Last Taken Unknown] levothyroxine 137 mcg tablet 137 mcg PO DAILY 01/15/23 [History Last Taken Unknown] Allergy/AdvReac Type Severity Reaction Status Date / Time aspirin Allergy Anaphylaxis Verified 01/15/23 17:02 Food Allergies: Uncoded Allergy Anaphylaxis Verified 01/15/23 17:02 Iodinated Contrast Media [CT] Allergy Anaphylaxis Verified 01/15/23 17:02 Family History Uncle Cancer Stomach cancer Father Heart disease Other CVA (cerebral vascular accident) Diabetes Myocardial infarction Surgical History Hx of cholecystectomy Hx of dilation and curettage Tubal ligation status Social History Smoking Status: Never smoker alcohol intake: current alcohol intake frequency: a few times a month Alcohol type: beer substance use type: does not use ROS ROS ED Constitutional Constitutional ED: Denies chills or fever(s) Eyes Eyes: Denies discharge from eye(s) ENT ENT ED: Denies discharge from eye(s), rhinorrhea or sore throat Cardiovascular Cardiovascular: Reports chest pain; Denies palpitations Respiratory/Chest Respiratory/Chest: Denies cough or dyspnea Gastrointestinal Gastrointestinal: Denies abdominal pain, nausea or vomiting Genitourinary Genitourinary ED: Denies dysuria Musculoskeletal Musculoskeletal: Reports back pain; Denies extremity pain Integumentary Denies Abrasions or rash Neurologic Neurologic: Reports paresthesias; Denies headache(s) or weakness Psychiatric Psychiatric: Denies anxiety or depression Allergic/Immunologic Allergic/Immunologic ED: Denies lip swelling or urticaria EXAM Physical Exam Const Vital Signs: 01/15/23 17:02 01/15/23 17:20 01/15/23 17:20 Temperature 97.6 F L Temperature Source Temporal Pulse Rate 58 L 47 L Respiratory Rate 14 14 Respiratory Effort Normal Blood Pressure 142/86 H 150/87 H Blood Pressure Mean 104 108 Pulse Ox 99 99 Oxygen Delivery Method Room Air Room Air 01/15/23 17:30 01/15/23 18:10 01/15/23 19:00 Temperature Temperature Source Pulse Rate 50 L 41 L Respiratory Rate 16 12 Respiratory Effort Blood Pressure 134/74 H 148/73 H Blood Pressure Mean 94 98 Pulse Ox 97 99 Oxygen Delivery Method Room Air Room Air Room Air Positive well nourished HEENT Reports moist mucous membranes Eyes EOMs intact bilaterally Chest Wall inspection of chest normal and palpation of chest normal Resp normal respiratory effort and clear to auscultation bilaterally Cardio Rate: bradycardia GI normal to inspection, nondistended, normoactive bowel sounds and soft to palpation Extremity normal to inspection Neuro oriented x3 and no sensory deficits noted Motor Exam: strength 5/5 throughout Psych mental status grossly normal Skin no rashes or lesions noted MDM MDM MDM Narrative Medical decision making narrative: Patient has an allergy to aspirin and this will be held. Patient placed on quality assurance monitor body. IV line established. Labwork obtained to evaluate for leukocytosis, anemia, and electrolyte derangement. Chest x-ray obtained to evaluate for acute lung pathology, cardiac size, or mediastinal abnormality. EKG obtained to evaluate for cardiac arrhythmia/ischemia. History & Record Review Discussion w/independent historian: Patient Lab Data Attestation: I reviewed the patient's lab results. Labs: Laboratory Results - last 24 hr 01/15/23 17:30 WBC 6.3 RBC 4.46 Hgb 13.2 Hct 41.6 MCV 93.3 MCH 29.6 MCHC 31.7 L RDW Std Deviation 43.3 RDW Coeff of Ashley 12.6 Plt Count 173 MPV 10.9 Immature Gran % (Auto) 0.200 Neut % (Auto) 50.6 Lymph % (Auto) 38.0 [place] % (Auto) 8.9 Eos % (Auto) 1.3 Baso % (Auto) 1.0 Absolute Neuts (auto) 3.2 Absolute Lymphs (auto) 2.38 Nucleated RBC % 0 Sodium 143 Potassium 3.5 Chloride 110 H Carbon Dioxide 32.0 Anion Gap 1 L BUN 12 Creatinine 0.84 Estim Creat Clear Calc 73.64 Est GFR (MDRD) Af Amer 89 Est GFR (MDRD) Non-Af 74 BUN/Creatinine Ratio 14.2 Glucose 86 Calcium 8.8 Troponin I High Sens 7 Radiography Chest X-Ray - ED: 1 View, Read by ED Physician, Chronic Changes and No Infiltrates Diagnostic Testing: Clinical Impression(s) from Imaging Studies Chest X-Ray 01/15/23 17:40 IMPRESSION: Nonacute portable x-ray examination of the chest. Electronically Signed: Rex Gerber MD ([place]) at 17:54 EST , EKG Initial EKG: Attestation: I personally reviewed and interpreted this EKG as follows: Interpretation: Sinus Bradycardia (Sinus bradycardia at 48 bpm. No acute ischemia.) Treatment and Re-Evaluation :: CBC was normal white count at 6.3 with a hemoglobin of 13.2. Differential is unremarkable. Chemistry studies are normal with normal renal function and potassium. Troponin is normal at 7. Portable chest x-ray per my interpretation was chronic changes with no focal infiltrate. EKG is sinus bradycardia with no acute ischemia. Patient states that she wears her Fitbit watch and has not noted any significant episodes of bradycardia. Her blood pressure has been normal throughout her ED stay but her heart rate tends to be between 40s and 60s. At this time with palpation of the left posterior lateral neck and upper thoracic musculature she does have reproducible tenderness. I advised her that her symptoms may be musculoskeletal in nature as the nerves exiting this portion of the spine would wraparound onto her chest as well as down her arm. She is reassured with our work-up and will follow-up with her primary care physician. Return instructions are given. Discharge Plan Triage Chief Complaint: Chest Pain ED Provider: Ricarda Garcia Dx/Rx/DC Orders Clinical Impression: Bradycardia, Chest pain Instructions: ED Bradycardia, ED Chest Pain, Uncertain Cause Prescriptions: No Action fluoxetine [Prozac] 20 mg capsule 20 mg PO DAILY omeprazole 20 mg capsule,delayed release(DR/EC) 20 mg PO DAILY lisinopril 5 mg tablet 5 mg PO DAILY levothyroxine 200 mcg tablet 150 mcg PO DAILY Patient Comments: thyroid loratadine 10 mg tablet 10 mg PO DAILY PRN (Reason: ALLERG) Multivitamin Gummies 200 mcg Tablet,Chewable 1 tab PO DAILY levothyroxine 137 mcg tablet 137 mcg PO DAILY Primary Care Provider: Johanna Valdes Referrals: Johanna Valdes MD [Primary Care Provider] - 3-5 Days if not improving Disposition Disposition: Home, Self Care
--- NOTE | 2023-01-15 17:40 | RAD_ITS ---
STUDY: X-RAY CHEST REASON FOR EXAM: Female, 57 years old. chest pain TECHNIQUE: AP COMPARISON: 11/06/2015 FINDINGS: EKG leads project over the chest. The lungs are clear and expanded. There is no demonstrated pleural abnormality. Normal size heart. Normal mediastinum and sofi. Normal visualized pulmonary arteries. Normal visualized aortic arch and descending thoracic aorta. There is a dextroscoliosis of the thoracic spine. Normal visualized ribs, clavicles, and shoulders. There is no demonstrated abnormality of the visualized soft tissue structures of the upper abdomen. RAD/Chest 1 View (Portable) IMPRESSION: Nonacute portable x-ray examination of the chest. Electronically Signed: Rex Gerber MD ([place]) at 17:54 EST ,
[2023-01-15] MEDS: 0.9% Normal Saline (1000mL) 1,000 ML 150 ML IV (17:45)
[2023-01-15 17:49] LABS: Absolute Lymphocyte Count 2.38 X10^3/uL (0.83-4.51); Absolute Neutrophil Count 3.2 X10^3/uL (2.0-7.7); Basophil# 0.06 X10^3/uL; Eosinophil# 0.08 X10^3/uL; Eosinophils% 1.3 % (0-5); Hematocrit 41.6 % (37-47); Hemoglobin 13.2 g/dL (12.0-15.0); Lymphocyte # 2.38 X10^3/ul (0.83-4.51); Mean Corp Hgb Conc 31.7 g/dL (32-36); Mean Corpuscular Hgb 29.6 pg (27.0-32.0); Mean Corpuscular Volume 93.3 fL (81-99); Mean Platelet Vol. 10.9 fl (6.2-12.0); Monocyte# 0.56 X10^3/uL; Monocyte% 8.9 % (0-10); NRBC Flagged by Analyzer 0 % (0-5); Neutrophil # 3.17 X10^3/uL (2.7-7.7); Neutrophil % 50.6 % (47-70); Platelet Count 173 K/mm3 (150-450); RBC Distribution Width CV 12.6 % (11.6-14.6); RBC Distribution Width SD 43.3 fl (35.1-43.9); Red Blood Count 4.46 M/mm3 (4.2-5.4); White Blood Count 6.3 K/mm3 (4.4-11.0)
[2023-01-15 18:10] VITALS: BP 134/74; PULSE 50; RESP 16; O2SAT 97
[2023-01-15 18:11] LABS: Anion Gap 1 (5-15); BUN 12 mg/dL (7-18); BUN/Creat Ratio 14.2 RATIO (10-20); Calcium,Total 8.8 mg/dL (8.5-10.1); Chloride 110 mmol/L (98-107); Creatinine, Serum 0.84 mg/dL (0.55-1.02); EST Glomerular Filtration Rate 74 mL/min (>60); Est Glom Filt Rate - Afr Amer 89 mL/min (>60); Estimated Creatinine Clearance 73.64 ml/min; Glucose 86 mg/dL (74-106); Potassium 3.5 mmol/L (3.5-5.1); Sodium Level 143 mmol/L (136-145); Troponin-I HS 7 pg/mL (3.0-54.0)
[2023-01-15 19:00] VITALS: BP 148/73; PULSE 41; RESP 12; O2SAT 99
[2023-01-15 20:44] VITALS: BP 131/67; PULSE 48; RESP 17; O2SAT 99
== END 2023-01-15 20:50 | disposition home or self-care (01) ==
PROVIDERS: Emergency Provider Emergency Medicine; PCP Family Medicine; Visit Provider Emergency Medicine
DX: R07.9 Chest pain, unspecified (principal); I10 Essential (primary) hypertension; R00.1 Bradycardia, unspecified; F32.A Depression, unspecified; K21.9 Gastro-esophageal reflux disease without esophagitis; Z79.899 Other long term (current) drug therapy; Z90.49 Acquired absence of other specified parts of digestive tract
CPT/HCPCS: 71045; 80048; 84484; 85025; 93005; 96360; 96361; 99283; J7030; A4216

== ENCOUNTER → 2023-01-17 | Outpatient (CLI) | payer OTHER, SELFPAY ==
[2023-01-17 18:20] LABS: Thyroid Stim Hormone (TSH) 0.34 uIU/mL (0.358-3.74)
== END | disposition home or self-care (01) ==
LOC: BFHLAB 16:33
PROVIDERS: PCP Nurse Practitioner Family; Referring Provider Nurse Practitioner Family; Visit Provider Nurse Practitioner Family
DX: E03.9 Hypothyroidism, unspecified (principal)
CPT/HCPCS: 36415; 84443

== ENCOUNTER → 2023-04-12 | Outpatient (CLI) | payer OTHER, SELFPAY ==
[2023-04-12 17:59] LABS: T4 Free Direct 1.29 ng/dL (0.76-1.46); Thyroid Stim Hormone (TSH) 0.29 uIU/mL (0.358-3.74)
--- OUTSIDE RECORDS SUMMARY | 2023-04-12 19:31 | XMS RPT_ITS | CCD ---
Author Name Unknown Address [address] [place] [address] Organization [facility] Care Team Providers Care Ignition Expert Name Role Phone Unavailable Primary Care Provider JAYSON Gallagher Referring Unavailable Allergies Allergy Classification Reported Allergen(s) Allergy Type Date of Onset Reaction(s) Facility (8 sources) Aspirin; Translations: [ASPIRIN] Drug Allergy 5 Anaphylaxis [facility] Work Phone: (7 sources) iv dye [Other] Propensity to adverse reactions 5 Anaphylaxis [facility] (1 source) OTHER; Translations: [OTHER] Propensity to adverse reactions (disorder) 5 [facility] [place] [facility] Medications Completed/Discontinued Medications Medication Drug Class(es) Dates Sig (Normalized) Sig (Original) acetaminophen 500 mg oral tablet (7 sources) take 2 tablets by mouth every eight hours as needed acetaminophen (TYLENOL) 500 mg tablet Take 1,000 mg by mouth every 8 hours as needed. 0 Active Problems Active Problems Problem Classification Problem Date Documented Date Episodic/Chronic Anxiety disorders (7 sources) Generalized anxiety disorder; Translations: [Generalized anxiety disorder] 12-24-2004 Chronic Asthma (7 sources) Asthma; Translations: [Unspecified asthma, uncomplicated] 12-12-2014 Chronic Complications of surgical procedures or medical care (7 sources) Postablative hypothyroidism; Translations: [Postprocedural hypothyroidism] Onset: 07-19-2006 11-25-2006 Chronic Esophageal disorders (7 sources) Gastroesophageal reflux disease; Translations: [Gastro-esophageal reflux disease without esophagitis] Onset: 12-12-2014 12-12-2014 Chronic Heart valve disorders (7 sources) Mitral valve prolapse; Translations: [Nonrheumatic mitral (valve) prolapse] Onset: 12-12-2014 12-12-2014 Chronic Other nutritional; endocrine; and metabolic disorders (7 sources) Obesity; Translations: [Obesity, unspecified] Onset: 12-12-2014 12-12-2014 Chronic Thyroid disorders (7 sources) Hypothyroidism; Translations: [Hypothyroidism, unspecified] Onset: 12-12-2014 12-12-2014 Chronic Past or Other Problems Problem Classification Problem Date Documented Date Episodic/Chronic Abdominal pain (7 sources) Right upper quadrant pain; Translations: [Right upper quadrant pain] Onset: 01-21-2005 01-21-2005 Episodic Biliary tract disease (7 sources) Gallstone; Translations: [Calculus of gallbladder without cholecystitis without obstruction] Onset: 01-21-2005 01-21-2005 Episodic Other screening for suspected conditions (not mental disorders or infectious disease) (11 sources) Abnormal findings diagnostic imaging of liver+biliary tract; Translations: [Abnormal findings on diagnostic imaging of liver and biliary tract] Onset: 01-21-2005 01-21-2005 Episodic Results Test Name Value Interpretation Reference Range Facil ity Encounters Encounter Date Encounter Type Care Provider Facility Start: 06-07-2022 Telephone encounter Coretta bailey MD Work Phone: Mammography Procedures Date Procedure Procedure Detail Performing Clinician Start: 06-03-2022 Mammography Coretta hardwick MD Work Phone: Start: 07-21-2021 End: 07-21-2021 Digital breast tomosynthesis bilateral Jayson Roman MD Work Phone: Start: 11-19-2020 Mammography Jayson Roman MD Work Phone: Plan of Treatment Date Care Activity Detail Author Start: 06-04-2023 Mammography MAMMOGRAM [facility] Start: 11-05-2022 Influenza vaccination INFLUENZA (Season Ended) [facility] keerthi Start: 07-21-2022 Mammography MAMMOGRAM [facility] Start: 03-07-2022 DEPRESSION ASSESSMENT DEPRESSION ASSESSMENT [facility] Start: 11-19-2021 Mammography MAMMOGRAM [facility] Start: 11-05-2021 Influenza vaccination INFLUENZA (Season Ended) [facility] keerthi Start: 01-08-2020 HPV TESTING HPV TESTING [facility] Start: 01-08-2020 PAP TESTING PAP TESTING [facility] Start: 2014 SHINGRIX VACCINE (1 of 2) SHINGRIX VACCINE (1 of 2) [facility] Start: 12-16-2009 LIPID SCREEN LIPID SCREEN [facility] Start: 2009 COLOGUARD (FIT-DNA) COLOGUARD (FIT-DNA) [facility] Start: 2009 Colonoscopy COLONOSCOPY [facility] Start: 2009 COLORECTAL CANCER SCREENING COLORECTAL CANCER SCREENING [facility] Start: [address] COLONOGRAPHY [facility] Start: 2009 DIABETES SCREEN DIABETES SCREEN [facility] Start: 2009 FECAL OCCULT BLOOD FECAL OCCULT BLOOD [facility] Start: 2009 SIGMOIDOSCOPY SIGMOIDOSCOPY [facility] Start: 02-04-2003 PNEUMOCOCCAL (2 - PCV) PNEUMOCOCCAL (2 - PCV) [facility] Start: 04-13-2002 Urine microalbumin profile DTAP,TDAP,TD (1 - Tdap) [facility] Start: 1982 ANNUAL PCP TEAM CHRONIC DISEASE VISIT ANNUAL PCP TEAM CHRONIC DISEASE VISIT [facility] Start: 1982 HEPATITIS C SCREENING HEPATITIS C SCREENING [facility] Start: 1982 HIV SCREENING HIV SCREENING [facility] Start: 1982 SPIROMETRY SPIROMETRY [facility] Start: 1976 Adult depression screening assessment DEPRESSION SCREENING [facility] Start: 1969 COVID-19 VACCINE (#1) COVID-19 VACCINE (#1) [facility] Start: 1969 COVID-19 VACCINE (1) COVID-19 VACCINE (1) [facility] Start: 05-01-1965 COVID-19 VACCINE (#1) COVID-19 VACCINE (#1) [facility] Start: 1964 HEPATITIS B (1 of 3 - 3-dose series) HEPATITIS B (1 of 3 - 3-dose series) [facility] End: 07-15-2022 Diagnostic mammography computer-aided detcj bi [facility] Radiology Routine Abnormal mammogram 1 Occurrences starting 06/15/2021 until 07/15/2022 [facility] Work Phone: Immunizations Immunization Date Immunization Notes Care Provider Trish peters 04-12-2002 tetanus and diphther ia toxoids, not adsorbed, for adult use Jayson Roman MD Work Phone: [facility] Work Phone: 02-04-2002 pneumococcal polysaccharide vaccine, 23 monroe Roman MD Work Phone: [facility] Work Phone: Payers Date Payer Category Payer Unknown MMO MMO [employer] [id number] 2018-Present [phone] [address] [place] [address] PPO [id number] 2018 Unknown MMO MMO [employer] P[employer] [id number] 2018-Present [phone] [address] [place] [address] PPO [id number] 2018 Unknown [id number] 2003 Unknown ATTN PT FINANCIA L S SELF PAY DD5 [id number] 2003-Present [id number] [place] [address] Indemnity [id number] Social History Date Type Detail Facility Start: 11-24-2020 Tobacco smoking stat us [facility] Never smoked tobacco [facility] Start: 12-01-2020 Alcohol intake Current drinke r of alcohol (finding) [facility] Start: 1965 Sex Assigned At Not on file [facility] Start: 06-02-2021 End: 06-12-2021 Exposure to SARS-CoV-2 (event) Not sure [facility] Work Phone: Start: 11-24-2020 Tobacco use and exposure Smokeless tobacco non-user [facility] Note 06-04-2022 Letter - Mammography Coordinator - 06/04/2022 2:44 PM EDT Note Date & Type Note Facility 06-04-2022 Miscellaneous Notes Formattin g of this note might be different from the original. June 07, 2022 PID: [id number] Nikita Almodovar [address] [place] [address] Dear Ms. Almodovar, Your recent breast imaging exam on 06/03/2022 showed a possible finding that requires additional imaging studies for a complete evaluation. Most such findings are probably benign (not cancer). If you have a healthcare provider who ordered/prescribed your screening mammogram: Please call [phone] or [phone] to schedule an appointment for your additional imaging (if you have not already done so). If you DO NOT have a healthcare provider (ie you did not have an order/prescription for your screening mammogram): Please call to schedule an appointment for your additional imaging (if you have not already done so). You must have an order/prescription from your physician when calling to schedule your appointment. If your order/prescription is not electronic, you must bring the hard copy with you on the day of your exam to avoid delays. Your imaging studies and reports are kept on file at [facility] as part of your permanent medical record, and are available for your continuing care. Thank you for allowing us to help in meeting your health care needs. Sincerely, Dr. Cordero Interpreting Radiologist [facility] (Additional imaging) documented in this encounter [facility] Progress note 06-03-2022 Note Date & Type Note Facility 06-03-2022 Note HNO ID: [id number] Author: Raphael Kapoor Service: ? Author Type: Circular Knitter Helper Type: Progress Notes Filed: 06/03/2022 2:07 PM Note Text: Radiology Service Progress Note PATIENT NAME: Nikita Almodovar DATE OF SERVICE: June 03, 2022 TIME: 1:46 PM PATIENT IDENTITY VERIFICATION COMPLETED USING TWO (2) IDENTIFIERS: Name and Date of confirmed by patient verbally. FALL SCREENING: Has the patient had 2 falls in the last year or 1 fall with injury or currently using an Ambulatory Assistive Device (Walker, Cane, Wheelchair, Crutches, etc.)? No PATIENT GENDER DATA: Female. status: : No status: NO. PATIENT RELEVANT IMPLANT DATA REVIEWED: Not Applicable RADIOLOGY DEPARTMENT: Mammography PERIPHERAL IV DATA: Not applicable SIGNED BY: Raphael Kapoor June 03, 2022 1:46 PM [facility] Note 08-04-2021 Telephone Encounter - Jayson Roman MD - 08/04/2021 12:56 PM EDT Note Date & Type Note Facility 08-04-2021 Miscellaneous Notes Told patient that results of mammograms revealed no evidence of malignancy. Patient may return to her yearly screening mammograms, to be done by her PCP. Follow up as per needed with me. Patient acknowledges above. documented in this encounter [facility] Progress note 07-21-2021 Note Date & Type Note Facility 07-21-2021 Note HNO ID: [id number] Author: Becki Connor Raphael [place] Service: ? Author Type: Circular Knitter Helper Type: Progress Notes Filed: 07/21/2021 9:27 AM Note Text: Radiology Service Progress Note PATIENT NAME: Nikita Almodovar DATE OF SERVICE: July 21, 2021 TIME: 8:26 AM PATIENT IDENTITY VERIFICATION COMPLETED USING TWO (2) IDENTIFIERS: Name and Date of confirmed by patient verbally. FALL SCREENING: Has the patient had 2 falls in the last year or 1 fall with injury or currently using an Ambulatory Assistive Device (Walker, Cane, Wheelchair, Crutches, etc.)? No PATIENT GENDER DATA: Female. status: : No status: NO. PATIENT RELEVANT IMPLANT DATA REVIEWED: Not Applicable RADIOLOGY DEPARTMENT: Mammography PERIPHERAL IV DATA: Not applicable SIGNED BY: Becki Connor Estelao [place] July 21, 2021 8:26 AM [facility] History of Present illness Narrative 07-21-2021 Becki Connor Estela[employer] Tech - 07/21/2021 8:30 AM EDT Note Date & Type Note Facility 07-21-2021 History of Presen t illness Narrative Radiology Service Progress Note PATIENT NAME: Nikita Almodovar DATE OF SERVICE: July 21, 2021 TIME: 8:26 AM PATIENT IDENTITY VERIFICATION COMPLETED USING TWO (2) IDENTIFIERS: Name and Date of confirmed by patient verbally. FALL SCREENING: Has the patient had 2 falls in the last year or 1 fall with injury or currently using an Ambulatory Assistive Device (Walker, Cane, Wheelchair, Crutches, etc.)? No PATIENT GENDER DATA: Female. status: : No status: NO. PATIENT RELEVANT IMPLANT DATA REVIEWED: Not Applicable RADIOLOGY DEPARTMENT: Mammography PERIPHERAL IV DATA: Not applicable SIGNED BY: Becki Connor [employer] July 21, 2021 8:26 AM documented in this encounter [facility] Evaluation note Note Date & Type Note Facility documented in this encounter [facility] Evaluation note Note Date & Type Note Facility documented in this encounter [facility] Reason for referral (narrative) Diagnostic Procedure Only (Routine) - Pending Review Note Date & Type Note Facility Referral ID Status Reason Start Date Expiration Date Visits Requested Visits Authorized [id number] Pending Review Auto-Generat ed Referral 06/15/2021 07/15/2022 1 1 [facility] Reason for referral (narrative) Diagnostic Procedure Only (Routine) - Pending Review Note Date & Type Note Facility Referral ID Status Reason Start Date Expiration Date Visits Requested Visits Authorized [id number] Pending Review Auto-Generat ed Referral 06/15/2021 07/15/2022 1 1 [facility] Reason for visit Narrative Diagnostic Procedure Only (Routine) - Closed Note Date & Type Note Facility Referral ID Status Reason Start Date Expiration Date V isits Requested Visits Authorized [id number] Closed Auto-Generate d Referral 06/15/2021 07/15/2022 1 1 [facility] Summary Purpose Family History No Family History Records Found Advance Directives No Advanced Directives Records Found Additional Source Comments Source Comments (unrecognize d section and content) In the event this informatio n is protected by the Federal Confidentiality of Alcohol and Drug Abuse Patient Records regulations: The Federal rules restrict any use of the information to criminally investigate or prosecute any alcohol or drug abuse patient.[facility] the event this information is protected by the Federal Confidentiality of Alcohol and Drug Abuse Patient Records regulations: The Federal rules restrict any use of the information to criminally investigate or prosecute any alcohol or drug abuse patient.[facility] the event this information is protected by the Federal Confidentiality of Alcohol and Drug Abuse Patient Records regulations: The Federal rules restrict any use of the information to criminally investigate or prosecute any alcohol or drug abuse patient.[facility] the event this information is protected by the Federal Confidentiality of Alcohol and Drug Abuse Patient Records regulations: The Federal rules restrict any use of the information to criminally investigate or prosecute any alcohol or drug abuse patient.[facility] the event this information is protected by the Federal Confidentiality of Alcohol and Drug Abuse Patient Records regulations: The Federal rules restrict any use of the information to criminally investigate or prosecute any alcohol or drug abuse patient.[facility] the event this information is protected by the Federal Confidentiality of Alcohol and Drug Abuse Patient Records regulations: The Federal rules restrict any use of the information to criminally investigate or prosecute any alcohol or drug abuse patient.[facility] Reason for Visit (unrecogniz ed section and content) Reason Comments Mammogram Result Call Back INFORMATION SOURCE (unrecogn ized section and content) FOR RECORDS PERTAINING TO PATIENTS WHO ARE OR HAVE BEEN ENROLLED IN A CHEMICAL DEPENDENCY/SUBSTANCEABUSE PROGRAM, SOME INFORMATION MAY BE OMITTED. This clinical summary was aggregated from multiple sources. Caution should be exercised in using it in the provision of clinical care. This summary normalizes information from multiple sources, and as a consequence, information in this document may materially change the coding, format and clinical context of patient data. In addition, data may be omitted in some cases. CLINICAL DECISIONS SHOULD BE BASED ON THE PRIMARY CLINICAL RECORDS. [facility]. provides no warranty or guarantee of the accuracy or completeness of information in this document.
== END | disposition home or self-care (01) ==
LOC: BFHLAB 16:17
PROVIDERS: PCP Nurse Practitioner Family; Visit Provider Nurse Practitioner Family
DX: E03.9 Hypothyroidism, unspecified (principal)
CPT/HCPCS: 36415; 84439; 84443

== ENCOUNTER → 2023-08-29 | Outpatient (CLI) | payer OTHER, SELFPAY ==
[2023-08-29 18:06] LABS: Absolute Lymphocyte Count 2.56 X10^3/uL (0.83-4.51); Absolute Neutrophil Count 4.2 X10^3/uL (2.0-7.7); Basophil# 0.06 X10^3/uL; Basophil% 0.8 % (0-1); Eosinophil# 0.08 X10^3/uL; Eosinophils% 1.1 % (0-5); Hematocrit 44.8 % (37-47); Hemoglobin 14.3 g/dL (12.0-15.0); Lymphocyte # 2.56 X10^3/ul (0.83-4.51); Lymphocyte % 34.5 % (19-41); Mean Corp Hgb Conc 31.9 g/dL (32-36); Mean Corpuscular Hgb 29.1 pg (27.0-32.0); Mean Corpuscular Volume 91.2 fL (81-99); Mean Platelet Vol. 11.1 fl (6.2-12.0); Monocyte# 0.56 X10^3/uL; Monocyte% 7.5 % (0-10); NRBC Flagged by Analyzer 0 % (0-5); Neutrophil # 4.15 X10^3/uL (2.7-7.7); Neutrophil % 55.8 % (47-70); Platelet Count 209 K/mm3 (150-450); RBC Distribution Width CV 12.5 % (11.6-14.6); RBC Distribution Width SD 41.5 fl (35.1-43.9); Red Blood Count 4.91 M/mm3 (4.2-5.4); White Blood Count 7.4 K/mm3 (4.4-11.0)
[2023-08-29 18:58] LABS: AST(SGOT) 20 U/L (15-37); Alanine Aminotransfer ALT/SGPT 23 U/L (13-56); Albumin, Serum 3.7 g/dL (3.2-5.0); Alkaline Phosphatase 114 U/L (45-117); Anion Gap 6 (5-15); BUN 12 mg/dL (7-18); BUN/Creat Ratio 14.7 RATIO (10-20); Calcium,Total 9.4 mg/dL (8.5-10.1); Chloride 106 mmol/L (98-107); Cholesterol 195 mg/dL (200); Creatinine, Serum 0.82 mg/dL (0.55-1.02); EST Glomerular Filtration Rate 76 mL/min (>60); Est Glom Filt Rate - Afr Amer 92 mL/min (>60); Globulin 3.7 g/dL (2.2-4.2); Glucose 70 mg/dL (74-106); High Density Lipoprotein 84 mg/dL; Protein, Total 7.4 g/dL (6.4-8.2); Sodium Level 140 mmol/L (136-145); Thyroid Stim Hormone (TSH) 6.14 uIU/mL (0.358-3.74); Triglycerides 81 mg/dL; Very Low Density Lipoprotein 16 mg/dL (5-40)
== END | disposition home or self-care (01) ==
LOC: LAB.FUTURE 16:28
PROVIDERS: PCP Family Medicine; Referring Provider Family Medicine; Visit Provider Family Medicine
DX: Z00.00 Encounter for general adult medical examination without abnormal findings (principal); R00.1 Bradycardia, unspecified; I10 Essential (primary) hypertension; F32.A Depression, unspecified; R07.9 Chest pain, unspecified; E03.9 Hypothyroidism, unspecified
CPT/HCPCS: 36415; 80053; 80061; 84439; 84443; 85025

== ENCOUNTER → 2023-09-22 | Outpatient (CLI) | payer OTHER, SELFPAY ==
--- NOTE | 2023-09-22 07:31 | RAD_ITS ---
PROCEDURE: Double contrast Upper GI with Small Bowel Follow Through DATE OF EXAMINATION: September 22, 2023.. INDICATION: Female, 57 years old. Epigastric pain. Dysphagia. Early sensitivity. FLUOROSCOPY TIME (if supplied): (1:46) minutes/seconds. 86 mGy. 86 images were submitted. TECHNIQUE: Radiographic and fluoroscopic images of the distal esophagus, stomach, and entire small intestine were obtained following the oral ingestion of barium. COMPARISON: None. FINDINGS: The secretary bookkeeper film of the abdomen demonstrates a normal bowel gas pattern. There are no abnormal calcifications or organomegaly demonstrated. The visualized osseous structures are normal. The esophagus is unremarkable. No evidence of obstruction. No evidence of gastroesophageal reflux. No mass lesion is seen. The stomach and duodenum are unremarkable. A single contrast small bowel follow through exam demonstrates the small bowel to have no evidence for stricture, ulceration or mass. The transit time is normal at 60 minutes. RAD/Upper GI/w Small Bowel IMPRESSION: 1. Double contrast upper GI and small bowel follow-through exam. Electronically Signed: Maxwell Washburn MD at 10:49 EDT ,
== END | disposition home or self-care (01) ==
PROVIDERS: PCP Family Medicine; Referring Provider Family Medicine; Visit Provider Family Medicine
DX: K44.9 Diaphragmatic hernia without obstruction or gangrene (principal)
CPT/HCPCS: 74246; 74248

== ENCOUNTER → 2023-11-24 | Outpatient (CLI) | payer OTHER, SELFPAY ==
--- NOTE | 2023-11-24 07:34 | BI_ITS ---
MAMMOGRAPHY - BILATERAL SCREENING REASON FOR EXAM: Female, 58 years old. Routine annual screening examination. PERTINENT HISTORY: History of bilateral stereotactic breast biopsies. TECHNIQUE: Digital bilateral breast juvenal (3D mammographic acquisition) in the CC and MLO projections. 2-D mediolateral oblique (MLO) and craniocaudad (CC) views of both breasts were obtained. CAD: Full Field Digital Mammography with Computer Added Detection was performed. COMPARISON: Comparison is made with prior study dated June 14, 2022. FINDINGS: Breast Composition: The breasts are heterogeneously dense, which may obscure small masses. There are no dominant masses or suspicious calcifications. Tissue clip markers are seen in the upper anterior lateral aspect of the right breast. No other significant abnormalities are identified. There has been no significant change since the prior study. BI/SCRN MAMM (CAD)W/JUVENAL BILAT IMPRESSION: Stable bilateral screening mammogram. Yearly follow-up mammogram recommended. (A) ASSESSMENT CATEGORY: BIRADS Category 2: Benign. A letter regarding these results will be sent to the patient by the facility within 30 days. Approximately 10% of breast cancers are not detected by mammography. A normal mammogram should not delay biopsy of a clinically suspicious abnormality. [id number] Electronically Signed: Maxwell Washburn MD at 8:33 EDT ,
== END | disposition home or self-care (01) ==
LOC: OPBI 07:32
PROVIDERS: PCP Family Medicine; Referring Provider Family Medicine; Visit Provider Family Medicine
DX: Z12.31 Encounter for screening mammogram for malignant neoplasm of breast (principal)
CPT/HCPCS: 77063; 77067

== ENCOUNTER → 2024-01-26 | Outpatient (CLI) | payer OTHER, SELFPAY ==
[2024-01-26 12:42] LABS: T4 Free Direct 1.03 ng/dL (0.76-1.46)
== END | disposition home or self-care (01) ==
LOC: BFHLAB 08:25
PROVIDERS: PCP Family Medicine; Referring Provider Family Medicine; Visit Provider Family Medicine
DX: E03.9 Hypothyroidism, unspecified (principal)
CPT/HCPCS: 36415; 84439; 84443

== ENCOUNTER → 2024-04-24 | Outpatient (CLI) | payer OTHER, SELFPAY ==
[2024-04-24 09:23] LABS: Absolute Lymphocyte Count 1.97 X10^3/uL (0.83-4.51); Absolute Neutrophil Count 2.5 X10^3/uL (2.0-7.7); Basophil# 0.05 X10^3/uL; Eosinophil# 0.07 X10^3/uL; Eosinophils% 1.4 % (0-5); Hematocrit 45.4 % (37-47); Hemoglobin 14.9 g/dL (12.0-15.0); Lymphocyte # 1.97 X10^3/ul (0.83-4.51); Lymphocyte % 38.9 % (19-41); Mean Corp Hgb Conc 32.8 g/dL (32-36); Mean Corpuscular Hgb 28.8 pg (27.0-32.0); Mean Corpuscular Volume 87.6 fL (81-99); Monocyte# 0.42 X10^3/uL; Monocyte% 8.3 % (0-10); NRBC Flagged by Analyzer 0 % (0-5); Neutrophil # 2.53 X10^3/uL (2.7-7.7); Platelet Count 210 K/mm3 (150-450); RBC Distribution Width SD 38.8 fl (35.1-43.9); Red Blood Count 5.18 M/mm3 (4.2-5.4); White Blood Count 5.1 K/mm3 (4.4-11.0)
[2024-04-24 10:23] LABS: ALB/GLOB Ratio 0.9 RATIO (0.9-2.4); AST(SGOT) 14 U/L (15-37); Alanine Aminotransfer ALT/SGPT 21 U/L (13-56); Albumin, Serum 3.5 g/dL (3.2-5.0); Alkaline Phosphatase 92 U/L (45-117); Anion Gap 2 (5-15); BUN 10 mg/dL (7-18); BUN/Creat Ratio 10.6 RATIO (10-20); CRP < 2.90 mg/L (0.0-3.0); Calcium,Total 9.5 mg/dL (8.5-10.1); Chloride 110 mmol/L (98-107); Creatinine, Serum 0.94 mg/dL (0.55-1.02); EST Glomerular Filtration Rate 65 mL/min (>60); Est Glom Filt Rate - Afr Amer 78 mL/min (>60); Globulin 3.8 g/dL (2.2-4.2); Glucose 96 mg/dL (74-106); Potassium 4.3 mmol/L (3.5-5.1); Protein, Total 7.3 g/dL (6.4-8.2); Sodium Level 141 mmol/L (136-145)
== END | disposition home or self-care (01) ==
LOC: LAB 08:40
PROVIDERS: PCP Family Medicine
DX: K92.89 Other specified diseases of the digestive system (principal); K58.0 Irritable bowel syndrome with diarrhea; K21.9 Gastro-esophageal reflux disease without esophagitis
CPT/HCPCS: 36415; 80053; 85025; 86140

== ENCOUNTER → 2024-04-27 | Outpatient (CLI) | payer OTHER, SELFPAY ==
--- NOTE | 2024-04-27 07:10 | US_ITS ---
PROCEDURE: ABDOMEN LIMITED REASON FOR EXAM: Right upper quadrant abdominal pain. COMPARISON: None FINDINGS: Liver: Diffusely echogenic suggesting fatty infiltration. Borderline hepatomegaly. It measures 17.7 cm. There is a 7 mm x 9 mm x 5 mm cyst in the left lobe. Gallbladder: Surgically absent. Common bile duct: Normal measuring it measures 2.9 mm. Pancreas: Visualized portions are sonographically unremarkable. Visualized portions of the right kidney are unremarkable. No right upper quadrant ascites. US/Abdomen Limited IMPRESSION: Borderline hepatomegaly. Diffuse fatty infiltration of the liver. There is a 7 mm mm by 9 mm by 5 mm cyst in the left lobe of the liver. Reading Location: [facility]
== END | disposition home or self-care (01) ==
LOC: US 07:07
PROVIDERS: PCP Family Medicine
DX: R10.11 Right upper quadrant pain (principal)
CPT/HCPCS: 76705

== ENCOUNTER → 2024-05-17 | Outpatient (CLI) | payer OTHER, SELFPAY ==
--- NOTE | 2024-05-17 10:50 | NM_ITS ---
PROCEDURE: GASTRIC EMPTYING STUDY REASON FOR EXAM: EARLY SATIETY, BLOATING TECHNIQUE: The patient ingested 1.1 mCi of technetium labeled sulfur colloid with oatmeal. Gastric emptying study was then obtained. RADIOPHARMACEUTICAL: 1.1 mCi of technetium labeled sulfur colloid. COMPARISON: None. FINDINGS: At 1 hour, 57% of the radiopharmaceutical exited the stomach. This is a normal study. NM/Gastric Emptying Study IMPRESSION: Normal gastric emptying study. Reading Location: [id number]
== END | disposition home or self-care (01) ==
LOC: NM 10:48
PROVIDERS: PCP Family Medicine
DX: R10.9 Unspecified abdominal pain (principal); R14.0 Abdominal distension (gaseous); R68.81 Early satiety
CPT/HCPCS: 78264; A9503

== ENCOUNTER → 2024-06-21 | Outpatient (CLI) | payer OTHER, SELFPAY ==
--- NOTE | 2024-06-21 07:51 | MRI_ITS ---
PROCEDURE: MRCP ABDOMEN WITHOUT CONTRAST 06/21/2024 REASON FOR EXAM: Right-sided abdominal pain. Nausea with decreased appetite. Constipation. Prior history of cholecystectomy. TECHNIQUE: MRI of the upper abdomen without intravenous gadolinium-based contrast. Multiplanar and multisequence images were obtained. 3D MRCP images. CONTRAST: None. COMPARISON: Ultrasound exam on 04/27/2024. FINDINGS: Prior cholecystectomy. Nondilated biliary tree. The common bile duct measures 4.7 mm. 6 mm simple cyst in the left hepatic lobe, unchanged. Fat containing umbilical hernia without incarceration. Mild diffuse spondylosis. The visualized lung bases are unremarkable. Normal unenhanced spleen. Normal pancreas. Nondilated pancreatic duct. Normal bilateral adrenal glands. Normal size of the right kidney. There is no right renal mass. There are no right renal calculi. There is no right hydronephrosis. Normal visualized right ureter. Normal size of the left kidney. There is no left renal mass. There are no left renal calculi. There is no left hydronephrosis. Normal visualized left ureter. Normal visualized stomach. Normal visualized small intestine. Normal visualized colon. There is no demonstrated peritoneal fluid. Normal abdominal aorta. Normal inferior vena cava. Normal retroperitoneum. MRI/MRCP Abdomen without Contrast IMPRESSION: 1. Prior cholecystectomy. 2. Nondilated biliary tree. 3. The common bile duct measures 4.7 mm. 4. 6 mm simple cyst in the left hepatic lobe, unchanged. 5. Fat containing umbilical hernia without incarceration. 6. Mild diffuse spondylosis. 7. The visualized lung bases are unremarkable. 8. Normal unenhanced spleen. 9. Normal pancreas. 10. Nondilated pancreatic duct. Reading Location: [id number]
== END | disposition home or self-care (01) ==
LOC: MRI 07:38
PROVIDERS: PCP Family Medicine
DX: R10.9 Unspecified abdominal pain (principal)
CPT/HCPCS: 74181

== ENCOUNTER 2024-07-17 11:32 | Day surgery (SDC) | payer OTHER, SELFPAY ==
[2024-07-17] VITALS (8 sets, daily range): BP systolic 113–143; BP diastolic 76–85; PULSE 54–67; RESP 16; TEMP 36.1–36.9; O2SAT 97–100; BMI 35.9
--- NOTE | 2024-07-17 12:03 | HP.PCM_ITS ---
HPI - General General Date of Admission: 07/17/24 Date of Service: 07/17/24 HPI Narrative AISSATOU DOUGHERTY, is a 58 F who presents to the office today for establishment with [facility] for a complaints of RUQ abdominal pressure and burning. She reports the abdominal burning and pressure starts immediately after eating; both radiate from RUQ to lateral side; occasional symptoms at epigastric area that will radiate into left shoulder and to lateral side under rib cage. States that this pressure makes her clothing feel too tight and she immediately wants to remove them. She's attempted bland diet and has removed gluten and dairy with no improvement of symptoms. She reports daily AM nausea and feeling of stomach fullness and early satiety with minimal ingestion of food. She denies difficulty chewing and swallowing, heartburn, reflux, emesis, hematochezia, and melena. She reports daily abdominal cramping relieved with BM of loose watery stool. Rarely will have sticky stools with tenesmus. Medical history of iron deficiency anemia, GERD - on omeprazole 20mg daily, cholecystectomy in 2000. Family history includes her mother with IBS and several maternal uncles with stomach, pancreatic, and colon cancers. She reports occasional 1 beer/week and is a never smoker. PCP visit on 04.10.24 she reported RUQ abdominal pain for a few weeks, described pain as intermittent and around her waist. Upper GI w/small bowel follow through normal on 09.22.23. ng; [facility] of colon cancer * call with results Coding Level of Care Code New Pt Off vis,new,level 4 Patient Type New History Comprehensive Exam Detailed Medical Decision Making Moderate Complexity [facility] Medical History Wears contact lenses Fatty liver High cholesterol Easy bruising Bipolar disorder Gastric reflux Leg cramps GERD (gastroesophageal reflux disease) Dense breast tissue on mammogram Breast pain, right Abnormal mammogram of right breast Acute upper respiratory infection Loss of hearing Wears glasses Anxiety Alcohol use Arthritis Low iron Heartburn Non-smoker Shortness of breath on exertion History of pain when walking History of edema History of stress test History of rheumatic fever Depression Hypertension COVID-19 Contact with or suspected exposure to other viral communicable disease Arthritic-like pain Acute pharyngitis, unspecified Strain of left middle finger Sinusitis Laryngitis Back pain Thyroid disease Asthma Knee pain Chest pain Hay fever Fatigue Fever Depression Hypothyroidism Obesity (BMI 35.0-39.9 without comorbidity) Home Medications ?Medication ?Instructions ?Recorded ?Last Taken ?Type levothyroxine 200 mcg tablet 150 mcg PO DAILY 06/17/22 Unknown History lisinopril 5 mg tablet 5 mg PO DAILY 06/17/22 Unkno wn History omeprazole 20 mg capsule,delayed 20 mg PO DAILY Unknown History release albuterol sulfate 90 mcg/actuation 2 puff inhalation Q 6H PRN 04/23/24 Unknown History aerosol inhaler (Ventolin HFA) bronchospasm hydroxyzine HCl 25 mg tablet 25 mg PO QHS 04/23/24 Unk nown History hydroxyzine HCl 50 mg tablet 50 mg PO QHS 04/23/24 Unk nown History lamotrigine 100 mg tablet 100 mg PO QDAY 04/23/24 Unkn own History minocycline 50 mg capsule 50 mg PO QDAY PRN skin irrit ation 04/23/24 Unknown History Lactobacillus acidophilus 10 100 mmu cells PO DAILY Unknown History billion cell capsule (NewFlora) levothyroxine 125 mcg tablet 125 mcg PO DAILY 07/13/24 Unknown History sennosides 8.6 mg capsule (senna) 17.2 mg PO QHS 07/13 Unknown History Allergy/AdvReac Type Severity Reaction Status Date / Time aspirin Allergy Anaphylaxis Verified 07/13/24 13:29 Food Allergies: Uncoded Allergy Anaphylaxis Verified 07/13/24 13:29 Iodinated Contrast Media (CT) Allergy Anaphylaxis Verified 07/13/24 13:29 Family History Uncle Cancer Stomach, pancreatic, colon cancers Father Heart disease Mother Asthma Bowel disease Depression Other CVA (cerebral vascular accident) Diabetes Myocardial infarction Surgical History H/O umbilical hernia repair S/P total knee arthroplasty Hx of dilation and curettage Tubal ligation status Hx of cholecystectomy Social History Smoking Status: Never smoker alcohol intake: current alcohol intake frequency: a few times a month Alcohol type: beer substance use type: does not use ROS Constitutional Constitutional: Denies fatigue, fever(s), poor appetite, weight gain or weight loss Gastrointestinal Gastrointestinal: Denies belching, bloating, change in bowel habits, change in stool character, chewing difficulty, coffee ground emesis, constipation, cramping, diarrhea, dyspepsia, dysphagia, early satiety, excessive flatus, fecal incontinence, heartburn, hematemesis, hematochezia, hemorrhoids, loose stools, melena, nausea, odynophagia, rectal bleeding, tenesmus, vomiting or weight changes Physical Exam Const alert, oriented x3, no apparent distress and healthy appearing General Appearance: cooperative GI normal to inspection, nondistended, normoactive bowel sounds, soft to palpation, non-tender and non-distended Percussion: normal to percussion Rectal Exam: deferred Assessment & Plan Assessment/Plan (1) Abdominal pain: (2) Gas bloat syndrome: (3) GERD (gastroesophageal reflux disease): QUALIFIERS: Esophagitis presence: without esophagitis Qualified Code(s): K21.9 - Gastro-esophageal reflux disease without esophagitis PLAN: Assessment and Plan Assessment and Plan (1) Gas bloat syndrome: Status: Acute (2) Irritable bowel syndrome with diarrhea: Status: Acute (3) GERD (gastroesophageal reflux disease): Status: Acute Qualifiers: Esophagitis presence: without esophagitis Qualified Code(s): K21.9 - Gastro-esophageal reflux disease without esophagitis Orders: Orders CRP Today K21.9 - Gastro-esophageal reflux disease without esophagitis, K58.0 - Irritable bowel syndrome with diarrhea, K92.89 - Other specified diseases of the digestive system Comprehensive Metabolic Profil Today K21.9 - Gastro-esophageal reflux disease without esophagitis, K58.0 - Irritable bowel syndrome with diarrhea, K92.89 - Other specified diseases of the digestive system CBC W/Diff, Automated Today K21.9 - Gastro-esophageal reflux disease without esophagitis, K58.0 - Irritable bowel syndrome with diarrhea, K92.89 - Other specified diseases of the digestive system Gastric Emptying Study Today R10.9 - Unspecified abdominal pain Gallbladder Today R10.9 - Unspecified abdominal pain Plan AISSATOU DOUGHERTY, is a 58 F who presents to the office today for establishment with [facility] for a complaints of RUQ abdominal pressure and burning. Differential diagnoses include: choledocholithiasis, IBS-D, PUD, gas bloat syndrome. Discussed care plan with her: * blood for inflammation markers and complete chemistry * she will use OTC famotidine QHS x2wks * continue omeprazole 20mg PO daily * GET to investigate early satiety * GB US to investigate RUQ pain * rifaximin 550mg PO TID x14d * OTC probiotic PO twice daily x14d, starting day #8 of antibiotic * schedule EGD to investigate GERD, PUD; [facility] of stomach and pancreatic cancer * schedule colonoscopy for screeni
[2024-07-17] MEDS: Lactated Ringers 1,000 ML 15 ML IV (12:14)
--- NOTE | 2024-07-17 12:27 | PCM.PRE.AN2 ---
ASA Classification* ASA Classification ASA Classification: 3 Assessment & Plan Anesthesia* Anesthesia Assessment Anesthesia Assessment: Discussed sedation and/or anesthesia options, risks, benefits, and alternatives with patient/parents/legal guardian/POA. Questions invited. The patient/parents/legal guardian/POA seems to understand and agrees to proceed with anesthesia plan. Reviewed the physical assessment, medical history, allergy history and patient home medications list prior to surgery/procedure/anesthetic and documented any changes. Performed airway and anesthesia risk assessments. Anesthesia Type Anesthesia Type: MAC History Source History Obtained from:: Patient and Chart Anesthesia Focused Assessment* Temperature: 98.4 F Pulse Rate: 63 Blood Pressure: 143/76 Respiratory Rate: 16 Pulse Ox: 98 Oxygen Delivery Method: Room Air Airway Assessment Mouth opens: >3 cm Mallampati Score: III Teeth Condition: Intact Focused Labs Anesthesia Preop lab: CBC WBC 5.1 K/mm3 (4.4-11.0) 04/24/24 08:42 04/24/24 RBC 5.18 M/mm3 (4.2-5.4) 04/24/24 08:42 04/24/24 Hgb 14.9 g/dL (12.0-15.0) 04/24/24 08:42 04/24/24 Hct 45.4 % (37-47) 04/24/24 08:42 04/24/24 Plt Count 210 K/mm3 (150-450) 04/24/24 08:42 04/24/24 CHEMISTRY Potassium 4.3 mmol/L (3.5-5.1) 04/24/24 08:42 04/24/24 Sodium 141 mmol/L (136-145) 04/24/24 08:42 04/24/24 Magnesium 2.0 mg/dL (1.6-2.6) 12/08/20 12:47 12/08/20 BUN 10 mg/dL (7-18) 04/24/24 08:42 04/24/24 Creatinine 0.94 mg/dL (0.55-1.02) 04/24/24 08:42 04/24/24 Glucose 96 mg/dL (74-106) 04/24/24 08:42 04/24/24 POC Glucose 100 mg/dL (70-110) 01/05/21 09:51 01/05/21 TSH 6.580 uIU/mL (0.358-3.740) H 01/26/24 08:26 01/26/24 COAG Pre-Assessment Diagnosis/Proposed Procedure Planned Operative Procedure(s): EGD,COLONOSCOPY Anesthesia History Anesthesia History - firepot operator and tender: Anesthesia History - firepot operator and tender Hx Hospitalization No 07/13/24 13:35 Any Problems With Anesthesia No 07/13/24 13:35 Cholinesterase deficiency No 07/13/24 13:35 You/Your Family Experience No 07/13/24 13:35 fever (hyperthermia) with Relationship Recent Exposure to Contagious No 07/17/24 12:11 Disease Does patient have nerve No 07/13/24 13:35 stimulator Patient instructed to have device shut off --Does patient have Pacemaker No 07/17/24 12:11 or ICD? When Was Last Pacemaker Check QUESTION #4 FULL TEXT: You/Your Family Experience fever (hyperthermia) with Anesthesia Last Oral Intake Last Oral intake: Last Oral Intake NPO since 10:00 07/17/24 12:11 Meds taken in AM with sips of No 07/17/24 12:11 water? Meds patient instructed to take am of surgery PONV PONV - firepot operator and tender: PONV - firepot operator and tender Female Yes 07/13/24 13:35 HX of Motion Sickness No 07/13/24 13:35 HX of N/V After Surgery No 07/13/24 13:35 Non-Smoker Yes 07/13/24 13:35 Duration of Surgery greater No 07/13/24 13:35 than 60 minutes Number of Risk Factors 2 07/13/24 13:35 PONV Score Moderate Risk 07/13/24 13:35 Height & Weight Height & Weight: Anesthesia: Height & Weight Height 5 ft 8 in 07/17/24 12:11 Weight: 107.3 kg 07/17/24 12:11 Body Mass Index (BMI) 35.9 07/17/24 12:11 Respiratory Assessment Respiratory Assessment - firepot operator and tender: Respiratory Tract Infection Hx - firepot operator and tender Hx Respiratory Tract Infection No 07/13/24 13:35 STOP Sleep Apnea STOP Sleep Apnea - firepot operator and tender: STOP Sleep Apnea - firepot operator and tender Hx Hypertension Yes: PER PT, CONTROLLED WITH 07/13/24 13:35 MED Hx Sleep Apnea No 07/13/24 13:35 CPAP No 07/13/24 13:35 BIPAP No 07/13/24 13:35 Do you snore loudly (louder Yes 07/13/24 13:35 than talking or can be heard Do you often feel tired/ No 07/13/24 13:35 fatigued/ sleepy during daytime? Has anyone observed you stop No 07/13/24 13:35 breathing during sleep? STOP Results Positive 07/13/24 13:35 QUESTION #5 FULL TEXT : Do you snore loudly (louder than talking or can be heard through closed doors)? Tobacco Use History Tobacco Use History - firepot operator and tender: Tobacco Use History - firepot operator and tender Tobacco Use Smoking Status Never smoker 07/13/24 13:35 Hx Tobacco Use No 07/13/24 13:35 Years Smoking Packs Smoked per Day Smoking Cessation Date was within the last 15 years Hx Smoking Cessation Date Hx Smoking Cessation Counseling Hematologic Medial History Hematologic Hx - firepot operator and tender: Hematologic Medical Hx - revenue cycle administrator Hx of Blood Transfusion No 07/13/24 13:35 Hx of Transfusion in last 3 No 07/13/24 13:35 Months Date of Last Transfusion (if within last 3 months) Ever experience any problems No 07/13/24 13:35 with transfusion(s)? Specify any problems Hx of Preganancy in last 3 No 07/13/24 13:35 Months Nurse Filling Out Transfusion MGRIFFITH 07/13/24 13:35 & Questions: Date: 07/13/24 07/13/24 13:35 Time: 13:37 07/13/24 13:35 Patient unable to answer at this time (ie. confused, unrespo /Reproduction History /Reproductive History - firepot operator and tender: /Reproductive Hx- firepot operator and tender Hx Now No 07/13/24 13:35 Gestational Age (in weeks): EDC: Hx Hx Para Hx Section SAB No 07/13/24 13:35 Active Medications Active Medications: Current Medications Generic Name Dose Route Start Last Admin Trade Name Freq PRN Reason Stop Dose Admin Lactated Ringer's 1,000 mls @ 15 mls/hr 07/17/24 11:45 07/17/24 12:14 IV 15 mls/hr .Q48H AMELIA Administration PFSH Medical History Wears contact lenses Fatty liver High cholesterol Easy bruising Bipolar disorder Gastric reflux Leg cramps GERD (gastroesophageal reflux disease) Dense breast tissue on mammogram Breast pain, right Abnormal mammogram of right breast Acute upper respiratory infection Loss of hearing Wears glasses Anxiety Alcohol use Arthritis Low iron Heartburn Non-smoker Shortness of breath on exertion History of pain when walking History of edema History of stress test History of rheumatic fever Depression Hypertension COVID-19 Contact with or suspected exposure to other viral communicable disease Arthritic-like pain Acute pharyngitis, unspecified Strain of left middle finger Sinusitis Laryngitis Back pain Thyroid disease Asthma Knee pain Chest pain Hay fever Fatigue Fever Depression Hypothyroidism Obesity (BMI 35.0-39.9 without comorbidity) Home Medications ?Medication ?Instructions ?Recorded ?Last Taken ?Type levothyroxine 200 mcg tablet 150 mcg PO DAILY 06/17/22 Unknown History lisinopril 5 mg tablet 5 mg PO DAILY 06/17/22 Unknown History omeprazole 20 mg capsule,delayed 20 mg PO DAILY 06/17/22 Unknown History release albuterol sulfate 90 mcg/actuation 2 puff inhalation Q6H PRN 04/23/24 Unknown History aerosol inhaler (Ventolin HFA) bronchospasm hydroxyzine HCl 25 mg tablet 25 mg PO QHS 04/23/24 Unknown History hydroxyzine HCl 50 mg tablet 50 mg PO QHS 04/23/24 Unknown History lamotrigine 100 mg tablet 100 mg PO QDAY 04/23/24 Unknown History minocycline 50 mg capsule 50 mg PO QDAY PRN skin irritation 04/23/24 Unknown History Lactobacillus acidophilus 10 100 mmu cells PO DAILY 07/13/24 Unknown History billion cell capsule (NewFlora) levothyroxine 125 mcg tablet 125 mcg PO DAILY 07/13/24 Unknown History sennosides 8.6 mg capsule (senna) 17.2 mg PO QHS 07/13/24 Unknown History Allergy/AdvReac Type Severity Reaction Status Date / Time aspirin Allergy Anaphylaxis Verified 07/17/24 12:10 Food Allergies: Uncoded Allergy Anaphylaxis Verified 07/17/24 12:10 Iodinated Contrast Media (CT) Allergy Anaphylaxis Verified 07/17/24 12:10 Family History Uncle Cancer Stomach, pancreatic, colon cancers Father Heart disease Mother Asthma Bowel disease Depression Other CVA (cerebral vascular accident) Diabetes Myocardial infarction Surgical History H/O umbilical hernia repair S/P total knee arthroplasty Hx of dilation and curettage Tubal ligation status Hx of cholecystectomy Social History Smoking Status: Never smoker alcohol intake: current alcohol intake frequency: a few times a month Alcohol type: beer substance use type: does not use Review of Systems (Anesthesia) ROS Narrative System reviewed and no additional complaints, except as documented. Physical Exam Const alert and oriented x3 Resp normal respiratory effort and normal air movement Auscultation: clear to auscultation bilaterally Cardio regular rate Neuro oriented x3 and moves all extremities
--- NOTE | 2024-07-17 13:00 | EGD_PTH ---
PATIENT: AISSATOU DOUGHERTY LOC: EN U#:[id number] AGE/SX: 58/F ROOM: RE07/17/[address]: Dr. Sy Ulloa DO : 1965 BED: DIS: 07/17/2024 SPEC #: [id number] RECD: 07/17/24 14:54 STATUS: KAREN REQ #: [id number] BEENA: 07/17/24 13:[address]: Sy Ulloa DEPT: SURGICAL PATHOLOGY RECD BY: Jama Delgado ENTERED: 07/17/24 15:16 SP TYPE: EGD BIOPSY OT DR: Dr. Johanna Valdes MD Tissues: A - Duodenum, NOS B - Gastric mucous membrane C - Ileum, NOS D - COLON BIOPSY E - Rectum, NOS Procedures: Surgery Specimen Level IV HEADER OPERATION: Colonoscopy with biopsies, EGD with biopsy PRE-OP DIAGNOSIS: Abdominal pain TISSUE SUBMITTED: A- Duodenum biopsy, B- Gastric body biopsy, C- Terminal ileum biopsy, D- Random colon biopsy, E- Rectal biopsy MICROSCOPIC DIAGNOSIS A. Small bowel, duodenum, biopsy: * Benign small bowel mucosa with no pathologic change B. Stomach, gastric body, biopsy: * Oxyntic mucosa with mild chronic inflammation * No morphologic evidence of Helicobacter pylori organisms C. Small bowel, terminal ileum, biopsy: * Small bowel mucosa with no pathologic change D. Colon, random, biopsies: * Colonic mucosa with no pathologic change E. Rectum, biopsy: * Colonic mucosa with no pathologic change MICROSCOPIC DESCRIPTION Slides are reviewed. GROSS DESCRIPTION A. Received in formalin in a container labeled with the patient's name, date of , and duodenum biopsy are 2 mccrary-pink fragments of mucosal tissue measuring 0.4 x 0.3 x 0.3 cm and 0.5 x 0.3 x 0.2 cm. Submitted in toto in A1. B. Received in formalin in a container labeled with the patient's name, date of , and gastric body biopsy are multiple mccrary-pink fragments of mucosal tissue measuring 0.8 x 0.7 x 0.2 cm in aggregate. Submitted in toto in B1. C. Received in formalin in a container labeled with the patient's name, date of , and terminal ileum biopsy are multiple mccrary-pink fragments of mucosal tissue measuring 0.6 x 0.6 x 0.2 cm in aggregate. Submitted in toto in C1. D. Received in formalin in a container labeled with the patient's name, date of , and random colon biopsies are multiple mccrary-pink fragments of mucosal tissue measuring 1.7 x 1.0 x 0.3 cm in aggregate. Submitted in toto in D1. E. Received in formalin in a container labeled with the patient's name, date of , and rectal biopsy are 2 mccrary-pink fragments of mucosal tissue each measuring 0.3 x 0.3 x 0.3 cm. Submitted in toto in E1. [facility] 07-17-2024 CPT:97279w4
--- NOTE | 2024-07-17 13:19 | PCM.POST.ANE ---
Anesthesia: Postop Eval I Current Vital Signs Temperature: 97.3 F Pulse Rate: 67 Blood Pressure: 115/80 Respiratory Rate: 16 Pulse Ox: 97 Oxygen Delivery Method: Room Air Assessment Airway patent: Yes Spontaneous unlabored respirations: Yes Mental status: Awake and Calm nausea: No Vomiting: No Anesthesia Complication: No Fluid Hydration Crystalloid volume administer (ml): 800 Total IV fluid infused: 800 Progress Note Anesthesia document: Postop Eval 1 completed: Yes
--- NOTE | 2024-07-17 13:24 | OP.EGD_ITS ---
Patient Name: Nikita Almodovar Procedure Date: 07/17/2024 12:38 PM Date of : 1965 Age: 58 Procedure: Upper GI endoscopy Indications: Epigastric abdominal pain Providers: Sy Ulloa DO Referring MD: Johanna Valdes Medicines: Monitored Anesthesia Care Patient Profile: This is a 58 year old female. Refer to note in patient chart for documentation of history and physical. Patient has symptoms of chronic epigastric abdominal pain and chronic dyspepsia. Complications: No immediate complications. Procedure: Pre-Anesthesia Assessment: - Prior to the procedure, a History and Physical was performed, and patient medications and allergies were reviewed. The patient is competent. The risks and benefits of the procedure and the sedation options and risks were discussed with the patient. All questions were answered and informed consent was obtained. Patient identification and proposed procedure were verified by the physician in the pre-procedure area. Mental Status Examination: alert and oriented. Airway Examination: normal oropharyngeal airway and neck mobility. Respiratory Examination: clear to auscultation. CV Examination: normal. ASA Grade Assessment: II - A patient with mild systemic disease. After reviewing the risks and benefits, the patient was deemed in satisfactory condition to undergo the procedure. The anesthesia plan was to use monitored anesthesia care (MAC). Immediately prior to administration of medications, the patient was re-assessed for adequacy to receive sedatives. The heart rate, respiratory rate, oxygen saturations, blood pressure, adequacy of pulmonary ventilation, and response to care were monitored throughout the procedure. The physical status of the patient was re-assessed after the procedure. After obtaining informed consent, the endoscope was passed under direct vision. Throughout the procedure, the patient's blood pressure, pulse, and oxygen saturations were monitored continuously. The was introduced through the mouth, and advanced to the fourth part of the duodenum. Small bowel enteroscopy was deemed necessary. The upper GI endoscopy was accomplished without difficulty. The patient tolerated the procedure well. Scope In: 12:48:49 PM Scope Out: 12:53:09 PM Total Procedure Duration Time 0 hours 4 minutes 20 seconds Findings: The examined esophagus was normal. Diffuse mildly erythematous mucosa without bleeding was found in the stomach. Biopsies were taken with a cold forceps for histology. Verification of patient identification for the specimen was done. Estimated blood loss was minimal. Biopsies were taken with a cold forceps for Helicobacter pylori testing. Verification of patient identification for the specimen was done. Estimated blood loss was minimal. Patchy moderate inflammation characterized by erythema was found in the entire duodenum. Biopsies were taken with a cold forceps for histology. Verification of patient identification for the specimen was done. Estimated blood loss was minimal. Impression: - Normal esophagus. - Erythematous mucosa in the stomach. Biopsied. - Chronic duodenitis. Biopsied. Recommendation: - Discharge patient to home. - Resume previous diet. - Continue present medications. - Await pathology results. Procedure Code(s): --- Professional --- 39212, Small intestinal endoscopy, enteroscopy beyond second portion of duodenum, not including ileum; with biopsy, single or multiple CPT copyright 2021 [employer]. All rights reserved. The codes documented in this report are preliminary and upon brass polisher review may be revised to meet current compliance requirements. Sy Ulloa DO 07/17/2024 1:23:45 PM This report has been signed electronically. Number of Addenda: 0 Note Initiated On: 07/17/2024 12:38 PM
--- NOTE | 2024-07-17 13:24 | OP.CCLET_ITS ---
07/17/2024 Johanna Valdes [id number] [facility] [address] [address] Re : Upper GI endoscopy procedure for Nikita Almodovar Dear Dr. Valdes This procedure was performed on Wednesday, July 17, 2024. My impressions and recommendations are as follows: Impressions : - Normal esophagus. - Erythematous mucosa in the stomach. Biopsied. - Chronic duodenitis. Biopsied. Recommendations : - Discharge patient to home. - Resume previous diet. - Continue present medications. - Await pathology results. My findings are described in the full procedure note, which is enclosed. If I can be of further assistance, please feel free to contact me at . Sincerely, Sy Ulloa, 07/17/2024 1:23:45 PM This report has been signed electronically.
--- NOTE | 2024-07-17 13:35 | OP.COLON_ITS ---
Patient Name: Nikita Almodovar Procedure Date: 07/17/2024 12:53 PM Date of : 1965 Age: 58 Procedure: Colonoscopy Indications: Clinically significant diarrhea of unexplained origin Providers: Sy Ulloa DO Referring MD: Johanna Valdes Medicines: Monitored Anesthesia Care Patient Profile: This is a 58 year old female. Refer to note in patient chart for documentation of history and physical. Patient has symptoms of chronic epigastric abdominal pain and chronic dyspepsia. Last Colonoscopy: none. The patient's first colonoscopy is today. Complications: No immediate complications. Procedure: Pre-Anesthesia Assessment: - Prior to the procedure, a History and Physical was performed, and patient medications and allergies were reviewed. The patient is competent. The risks and benefits of the procedure and the sedation options and risks were discussed with the patient. All questions were answered and informed consent was obtained. Patient identification and proposed procedure were verified by the physician in the pre-procedure area. Mental Status Examination: alert and oriented. Airway Examination: normal oropharyngeal airway and neck mobility. Respiratory Examination: clear to auscultation. CV Examination: normal. ASA Grade Assessment: II - A patient with mild systemic disease. After reviewing the risks and benefits, the patient was deemed in satisfactory condition to undergo the procedure. The anesthesia plan was to use monitored anesthesia care (MAC). Immediately prior to administration of medications, the patient was re-assessed for adequacy to receive sedatives. The heart rate, respiratory rate, oxygen saturations, blood pressure, adequacy of pulmonary ventilation, and response to care were monitored throughout the procedure. The physical status of the patient was re-assessed after the procedure. After I obtained informed consent, the scope was passed under direct vision. Throughout the procedure, the patient's blood pressure, pulse, and oxygen saturations were monitored continuously. The was introduced through the anus and advanced to the terminal ileum. The colonoscopy was performed without difficulty. The patient tolerated the procedure well. The quality of the bowel preparation was adequate. The terminal ileum, ileocecal valve, appendiceal orifice, and rectum were photographed. Scope In: 12:55:24 PM Scope Withdrawal Time 0 hours 10 minutes 43 seconds Scope Out: 1:08:15 PM Total Procedure Duration Time 0 hours 12 minutes 51 seconds Findings: Many small and large-mouthed diverticula were found in the recto-sigmoid colon, sigmoid colon and descending colon. An area of moderately congested mucosa was found in the entire colon. Biopsies were taken with a cold forceps for histology. Verification of patient identification for the specimen was done. Estimated blood loss was minimal. A patchy area of the terminal ileum was congested. Biopsies were taken with a cold forceps for histology. Verification of patient identification for the specimen was done. Estimated blood loss was minimal. There was a large lipoma, in the transverse colon. Impression: - Diverticulosis in the recto-sigmoid colon, in the sigmoid colon and in the descending colon. - Congested mucosa in the entire examined colon. Biopsied. - Congested mucosa in the terminal ileum. Biopsied. Recommendation: - Discharge patient to home. - Resume previous diet. - Continue present medications. - Await pathology results. - Repeat colonoscopy for surveillance based on pathology results. Procedure Code(s): --- Professional --- 44277, Colonoscopy, flexible; with biopsy, single or multiple CPT copyright 2021 [employer]. All rights reserved. The codes documented in this report are preliminary and upon mill hand plate mill review may be revised to meet current compliance requirements. Sy Ulloa DO 07/17/2024 1:34:51 PM This report has been signed electronically. Number of Addenda: 0 Note Initiated On: 07/17/2024 12:53 PM
--- NOTE | 2024-07-17 13:35 | OP.CCLET_ITS ---
07/17/2024 Johanna Valdes [place] [id number] [address] Re : Colonoscopy procedure for Nikita Almodovar Dear Dr. Valdes This procedure was performed on Wednesday, July 17, 2024. My impressions and recommendations are as follows: Impressions : - Diverticulosis in the recto-sigmoid colon, in the sigmoid colon and in the descending colon. - Congested mucosa in the entire examined colon. Biopsied. - Congested mucosa in the terminal ileum. Biopsied. Recommendations : - Discharge patient to home. - Resume previous diet. - Continue present medications. - Await pathology results. - Repeat colonoscopy for surveillance based on pathology results. My findings are described in the full procedure note, which is enclosed. If I can be of further assistance, please feel free to contact me at . Sincerely, Sy Ulloa, 07/17/2024 1:34:51 PM This report has been signed electronically.
--- NOTE | 2024-07-17 14:12 | PCM.POSTANE2 ---
Anesthesia Postop Eval I Sum Postop Eval Completion status Anesthesia document: Postop Eval 1 completed: Yes Anesthesia Postop Eval I Summary Anesthesia Postop Eval I Summary: Anesthesia Postop Eval I: Assessment Summary Airway patent Yes 07/17/24 13:19 [email or web address] Spontaneous unlabored Yes 07/17/24 13:19 [email or web address] respirations Mental status Awake,Calm 07/17/24 13:19 [email or web address] nausea No 07/17/24 13:19 [email or web address] Vomiting No 07/17/24 13:19 [email or web address] Anesthesia Postop Eval I: Fluid Summary Crystalloid volume administer 800 07/17/24 13:19 [email or web address] (ml) Colloids volume administered ( ml) Blood Product volume administered (ml) Total IV fluid infused 800 07/17/24 13:19 [email or web address] Anesthesia Postop Eval I: Summary Notes Anesthesia Complication No 07/17/24 13:19 [email or web address] Anesthesia Complication Comment: Post-operative progress note Anesthesia: Postop Eval II Evaluation Mental status: Awake and Calm Pain Level: 0 nausea: No Vomiting: No Complications Anesthesia Complication: No
== END 2024-07-17 14:05 | disposition home or self-care (01) ==
LOC: EN 11:35 → AC 11:36
PROVIDERS: PCP Family Medicine; Referring Provider Family Medicine; Visit Provider Internal Medicine Gastroenterology
PROC: 0DJD8ZZ Inspection of Lower Intestinal Tract, Via Natural or Artificial Opening Endoscopic (ICD-10-PCS; CPT 45378; principal; 2024-07-17 12:55)
DX: K29.50 Unspecified chronic gastritis without bleeding (principal); K21.9 Gastro-esophageal reflux disease without esophagitis; I10 Essential (primary) hypertension; K58.0 Irritable bowel syndrome with diarrhea; K57.30 Diverticulosis of large intestine without perforation or abscess without bleeding; E78.00 Pure hypercholesterolemia, unspecified; K29.80 Duodenitis without bleeding; D50.9 Iron deficiency anemia, unspecified; Z80.0 Family history of malignant neoplasm of digestive organs; J45.909 Unspecified asthma, uncomplicated; E03.9 Hypothyroidism, unspecified; Z79.890 Hormone replacement therapy
CPT/HCPCS: 45380; 43239; 88305; J2405

== ENCOUNTER → 2024-07-24 | Outpatient (CLI) | payer OTHER, SELFPAY | END | disposition home or self-care (01) | PROVIDERS: PCP Family Medicine; Referring Provider Family Medicine; Visit Provider Family Medicine | DX: E03.9 Hypothyroidism, unspecified (principal) | CPT/HCPCS: 36415; 84439; 84443 ==

== ENCOUNTER → 2024-09-10 | Outpatient (CLI) | payer OTHER, SELFPAY | END | disposition home or self-care (01) | LOC: US 07:43 | PROVIDERS: PCP Family Medicine | DX: K21.9 Gastro-esophageal reflux disease without esophagitis (principal); K76.0 Fatty (change of) liver, not elsewhere classified; R10.9 Unspecified abdominal pain; K58.0 Irritable bowel syndrome with diarrhea | CPT/HCPCS: 76705; 76981 ==

== ENCOUNTER → 2024-09-20 | Outpatient (CLI) | payer OTHER, SELFPAY ==
[2024-09-20 18:15] LABS: Hematocrit 43.8 % (37-47); Hemoglobin 14.4 g/dL (12.0-15.0); Immature Granulocytes Count 0.000 X10^3/uL (0.0-0.0); Mean Corp Hgb Conc 32.9 g/dL (32-36); Mean Corpuscular Volume 86.9 fL (81-99); Mean Platelet Vol. 10.7 fl (6.2-12.0); NRBC Flagged by Analyzer 0 % (0-5); Platelet Count 183 K/mm3 (150-450); RBC Distribution Width CV 13.2 % (11.6-14.6); RBC Distribution Width SD 41.6 fl (35.1-43.9); Red Blood Count 5.04 M/mm3 (4.2-5.4); White Blood Count 5.8 K/mm3 (4.4-11.0)
[2024-09-20 18:50] LABS: AST(SGOT) 21 U/L (<=31); Alanine Aminotransfer ALT/SGPT 19 U/L (<=34); Albumin, Serum 4.2 g/dL (3.5-5.0); Alkaline Phosphatase 104 U/L (35-104); Anion Gap 13 (5-15); BUN 7 mg/dL (4-19); BUN/Creat Ratio 8.0 RATIO (10-20); Calcium,Total 9.7 mg/dL (7.6-11.0); Carbon Dioxide 23.5 mmol/L (21.0-32.0); Chloride 104 mmol/L (98-108); Globulin 2.9 g/dL (2.2-4.2); Glucose 80 mg/dL (70-99); Potassium 4.0 mmol/L (3.3-5.1); Pro- Brain NATRIURETIC PEPTIDE 67 pg/mL (<=900)
[2024-09-20 18:54] LABS: CRP < 3.00 mg/L (0.0-3.0)
== END | disposition home or self-care (01) ==
LOC: MTLAB 07:28
PROVIDERS: PCP Family Medicine
DX: R10.11 Right upper quadrant pain (principal); K76.0 Fatty (change of) liver, not elsewhere classified; K92.89 Other specified diseases of the digestive system; R60.0 Localized edema
CPT/HCPCS: 36415; 80053; 83880; 85025; 86140

== ENCOUNTER → 2024-10-11 | Outpatient (CLI) | payer OTHER, SELFPAY ==
--- NOTE | 2024-10-11 08:55 | CT_ITS ---
PROCEDURE: ABDOMEN WITH ORAL CONT ONLY 10/11/2024 REASON FOR EXAM: ABD PAIN, NAUSEA, EARLY SATIETY TECHNIQUE: ABDOMEN WITH ORAL CONT ONLY coronal and Sagittal reconstruction series were provided. One or more dose reduction techniques were used (e.g., Automated exposure control, adjustment of the mA and/or kV according to patient size, use of iterative reconstruction technique CONTRAST: Oral contrast. RADIATION DOSE SUMMARY: CTDlvol: 12.05 mGy DLP: 409.25 mGycm COMPARISON: Prior MRI of the abdomen and pelvis dated June 21, 2024. FINDINGS: Noncontrast technique limits evaluation of the abdominal viscera. Lung bases: Linear scarring at the left lung base with the mild pleural thickening. Liver: Mild hepatomegaly. Gallbladder: Surgically absent. Spleen: Normal size. Pancreas: Normal size without evidence of mass surrounding inflammation or ductal dilation. Adrenals: Unremarkable Kidneys: Normal renal sizes. No hydronephrosis. Bowel: Nonspecific bowel gas pattern. Lymph nodes: Unremarkable. Vasculature: The abdominal aorta and IVC are normal. Peritoneum / Retroperitoneum: Unremarkable Bones: Degenerative changes of the spine. CT/Abdomen WITH ORAL Cont Only IMPRESSION: Mild hepatomegaly. Status post cholecystectomy. No acute abnormality is seen. Reading Location: [facility]
== END | disposition home or self-care (01) ==
PROVIDERS: PCP Family Medicine
DX: R10.11 Right upper quadrant pain (principal); R68.81 Early satiety; R11.0 Nausea
CPT/HCPCS: 74150

== ENCOUNTER → 2024-12-05 | Outpatient (CLI) | payer OTHER, SELFPAY ==
--- NOTE | 2024-12-05 07:04 | BI_ITS ---
EXAM: SCRN MAMM (CAD)W/JUVENAL BILAT DATE: 12/05/2024 CLINICAL HISTORY: F, Age 59 y/o , SCREENING Routine screening TECHNIQUE: Procedure Code: [id number] Modality: MG Procedure: SCRN MAMM (CAD)W/JUVENAL BILAT COMPARISON: Prior exam(s) dated 11/24/2023. FINDINGS: TISSUE DENSITY: The breasts are heterogeneously dense, which may obscure small masses. Bilateral Breast Mammographic Findings: No significant masses, calcifications or other abnormalities are identified. Stable post biopsy change in the right breast. No new suspicious findings BI/SCRN MAMM (CAD)W/JUVENAL BILAT IMPRESSION: Stable screening mammogram OVERALL FINAL ASSESSMENT BI-RADS 1: NEGATIVE. RECOMMENDATION: Routine annual follow-up in 1 Year Additional Recommendation none A letter with findings and recommendations will be mailed to the patient. Reading Location: [id number]
== END | disposition home or self-care (01) ==
LOC: OPBI 07:03
PROVIDERS: PCP Family Medicine; Referring Provider Family Medicine; Visit Provider Family Medicine
DX: Z12.31 Encounter for screening mammogram for malignant neoplasm of breast (principal)
CPT/HCPCS: 77063; 77067

== ENCOUNTER → 2025-02-21 | Outpatient (CLI) | payer OTHER, SELFPAY ==
--- NOTE | 2025-02-21 12:41 | US_ITS ---
PROCEDURE: ABD LIMITED W/ ELASTOGRAPHY, 02/21/2025 REASON FOR EXAM: FATTY LIVER COMPARISON: 10/12/2023 TECHNIQUE: Grayscale and color Doppler imaging of the right upper quadrant was performed. Elastography was performed for non-invasive assessment of liver tissue stiffness utilizing a [employer] S-shear wave imaging unit. FINDINGS: Exam limited by shadowing bowel gas. Liver: Unremarkable. 16.1 cm in length. Gallbladder: Cholecystectomy. Biliary tree: Unremarkable. CBD measures 4 mm. Pancreas: Partially obscured by shadowing bowel gas, grossly unremarkable as visualized. Right kidney: Unremarkable. 10.0 cm in length. Other: No visualized free fluid. Hepatic elastography: Number of measurements: 6. US probe: CA1-7A. EQI median: 6.2 kPa EQI median velocity: 1.41 m/s IQR/Med: 24.4% (kPa) and 12.7% (m/s). If the IQR/Med is IQR/median >30% (for kPa) or >15% in m/s, the variance in the measurements is a large and the accuracy of the measurement may be in question. US/ABD Limited w/ Elastography IMPRESSION: 1. Unremarkable hepatic echotexture. 2. Liver stiffness is 6.2 kPa. Per the below 2020 SRU criteria, this rules out compensated advanced chronic liver disease in the absence of other known clinical signs. If there are known clinical signs, furth er testing may be needed for confirmation. 3. Additional description as above. Assessment is per the Update to the SRU Liver Elastography Consensus Statement (2020) Note that the above assessment of liver fibrosis is vendor-neutral and intended for use in fibrosis related to viral etiologies and non-alcoholic fatty-liver disease (NAFLD); in causes other than viral hepat itis and NAFLD, the cutoff values are currently not well established. In some patients with NAFLD, the cutoff values for cACLD may be lower (7-9 kPa). Note also that in the setting of elevated LFTs, nonfasting or vascular congestion, the stage of lifer fibrosis may be overestimated. Previous SRU reference values: <1.37 m/s (5.7kPa): No to mild fibrosis 1.37 m/s - 2.2 m/s: Moderate to severe fibrosis >2.2 m/s (15kPa): Significant fibrosis / cirrhosis Reading Location: [id number]
== END | disposition home or self-care (01) ==
PROVIDERS: PCP Family Medicine; Referring Provider Student in an Organized Health Care Education/Training Program; Visit Provider Student in an Organized Health Care Education/Training Program
DX: K76.0 Fatty (change of) liver, not elsewhere classified (principal)
CPT/HCPCS: 76705; 76981